=== PATIENT | male | born 1960 | race Caucasian/White ===

== ENCOUNTER 2016-11-27 18:08 | Emergency (ER) | payer OTHER ==
[2016-11-27 18:47] VITALS: BP 124/85; PULSE 90; TEMP 97.2; BMI 23.3
--- NOTE | 2016-11-27 19:16 | PDOC ---
History of Present Illness - General History Source: Patient Exam Limitations: No Limitations - History of Present Illness Initial Comments: 11/27/16 19:32 The patient is a 55 year old male with past medical history of MR, conduct disorder, anxiety who arrives to the ED from a senior care secondary to one episode of vomiting about an hour ago prior to arrival. As per care takers the patient ate his dinner too fast and proceeded to vomit. They noted the vomit to be nonbloody and nonbilious. His dinner consisted of rice and vegetables. After the episode, the patient returned to his baseline. They deny any recent illness , fever, chills, diarrhea, CP, SOB, or urinary symptoms. <Norma Shearer - Last Filed: 11/27/16 19:32> <Rajani Guthrie - Last Filed: 11/28/16 03:17> - General Chief Complaint: Nausea/Vomiting Stated Complaint: THREW UP Time Seen by Provider: 11/27/16 19:13 Past History <Norma Shearer - Last Filed: 11/27/16 19:32> - Past Medical History Psychiatric Problems: Yes - Immunization History Immunization Up to Date: Yes - Psycho/Social/Smoking Cessation Hx Anxiety: Yes Suicidal Ideation: No Smoking Status: No Smoking History: Never smoked Have you smoked in the past 12 months: No Number of Cigarettes Smoked Daily: 0 Hx Alcohol Use: No Drug/Substance Use Hx: No Substance Use Type: None Hx Substance Use Treatment: No <Rajani Guthrie - Last Filed: 11/28/16 03:17> - Past Medical History Allergies/Adverse Reactions: Allergies Allergy/AdvReac Type Severity Reaction Status Date / Time lindane [From [place]] Allergy Verified 07/18/16 15:27 Phenothiazines Allergy Verified 07/18/16 15:27 thioridazine HCl Allergy Verified 07/18/16 15:27 [From Mellaril] Home Medications: Ambulatory Orders Ascorbate Calcium [Vitamin C] 500 mg PO DAILY 07/18/16 Benztropine Mesylate 0.5 mg PO BID 07/18/16 Cetirizine HCl [Wal-Zyr] 10 mg PO HS 07/18/16 Colloidal Oatmeal [Aveeno Bath] 1 each TP MOWEFR 07/18/16 Docusate Sodium [Colace -] 100 mg PO BID 07/18/16 Fluoxetine HCl 80 mg PO DAILY 07/18/16 Hydroxyzine HCl [Atarax -] 50 mg PO TID 07/18/16 Lorazepam [Ativan] 2 mg PO TID 07/18/16 [place]-3 Fatty Acids [[place]-3] 1,000 mg PO BID 07/18/16 Risperidone [Risperdal] 2 mg PO TID 07/18/16 Sennosides [Senna] 2 tab PO HS 07/18/16 Cholecalciferol (Vitamin D3) [Vitamin D3 -] 1,000 unit PO DAILY 11/27/16 Clobetasol Prop 0.05% Top Cr [Temovate (Nf)] 30 gm NR MOWEFR 11/27/16 Review of Systems - Review of Systems Able to Perform ROS?: Yes Comments:: 11/27/16 19:32 CONSTITUTIONAL: Absent: fever, chills, diaphoresis, generalized weakness, malaise, loss of appetite HEENT: Absent: rhinorrhea, nasal congestion, throat pain, throat swelling, difficulty swallowing, mouth swelling, ear pain, eye pain, visual Changes CARDIOVASCULAR: Absent: chest pain, syncope, palpitations, irregular heart rate, lightheadedness , peripheral edema RESPIRATORY: Absent: cough, shortness of breath, dyspnea with exertion, orthopnea, wheezing, stridor, hemoptysis GASTROINTESTINAL: Present: one episode of vomiting Absent: abdominal pain, abdominal distension, diarrhea, constipation, melena, hematochezia GENITOURINARY: Absent: dysuria, frequency, urgency, hesitancy, hematuria, flank pain, genital pain MUSCULOSKELETAL: Absent: myalgia, arthralgia, joint swelling SKIN: Absent: rash, itching, pallor HEMATOLOGIC/IMMUNOLOGIC: Absent: easy bleeding, easy bruising, lymphadenopathy, frequent infections ENDOCRINE: Absent: unexplained weight gain, unexplained weight loss, heat intolerance, cold intolerance NEUROLOGIC: Absent: headache, focal weakness or paresthesias, dizziness, unsteady gait, seizure, mental status changes, bladder or bowel incontinence PSYCHIATRIC: Absent: anxiety, depression, suicidal or homicidal ideation, hallucinations. All Other Systems: Reviewed and Negative <Norma Shearer - Last Filed: 11/27/16 19:32> *Physical Exam - Vital Signs Last Vital Signs Temp Pulse Resp BP Pulse Ox 97.2 F L 90 18 124/85 100 11/27/16 18:14 11/27/16 18:14 11/27/16 18:14 11/27/16 18:14 11/27/16 18:14 - Physical Exam Comments: 11/27/16 19:33 Exam limited to patient's mental condition GENERAL: The patient is awake, alert, nonverbal, cooperative in no acute distress. HEAD: Normal with no signs of trauma. EYES: Pupils equal, round and reactive to light, extraocular movements intact, sclera anicteric, conjunctiva clear with no pallor. ENT: Ears normal, nares patent, oropharynx clear without exudates. Moist mucous membranes. NECK: Normal range of motion, supple without lymphadenopathy, JVD, or masses. LUNGS: Breath sounds equal, clear to auscultation bilaterally. No wheeze/ crackles. HEART: Regular rate and rhythm, normal S1 and S2 without murmur or rub. ABDOMEN: Soft/nontender/nondistended. BS wnl. No guarding or rebound. No palpable masses. No hepatosplenomegaly. EXTREMITIES: Normal range of motion, no edema. No clubbing or cyanosis. No cords, erythema, or tenderness. NEUROLOGICAL: Cranial nerves II through XII grossly intact. PSYCH: Normal mood, normal affect. SKIN: Warm, Dry, normal turgor, no rashes or lesions noted. <Norma Shearer - Last Filed: 11/27/16 19:32> - Vital Signs Last Vital Signs Temp Pulse Resp BP Pulse Ox 97.2 F L 90 18 124/85 100 11/27/16 18:14 11/27/16 18:14 11/27/16 18:14 11/27/16 18:14 11/27/16 18:14 <Rajani Guthrie - Last Filed: 11/28/16 03:17> Medical Decision Making - Medical Decision Making Documentation has been prepared under my direction and personally reviewed by me in its entirety. I attest that this documented accurately reflects all work, treatment, procedures and medical decision making performed by me. As noted above, this 55-year-old patient with a history of MR, resident in local home for disabled adults presents with 1 episode of vomiting that occurred while he was eating dinner. According to the aides who accompany him here, he he has had no further signs of distress or vomiting since that one episode. Exam is noted Patient's exam is normal and he appears to be comfortable without evidence of distress. Patient given a small cup of juice to evaluate whether he will have any recurrence of vomiting Patient tolerates juice well without evidence of discomfort or vomiting. Patient will be discharged with instructions to return to the emergency room if there is any repeat episodes of vomiting or evidence of abdominal pain. Follow- up with general medical doctor will be as scheduled <Rajani Guthrie - Last Filed: 11/28/16 03:17> *DC/Admit/Observation/Transfer - Attestations Scribe Attestion: 11/27/16 19:35 Documentation prepared by Norma Shearer, acting as medical assistant dermatology for Rajani Guthrie MD. <Norma Shearer - Last Filed: 11/27/16 19:32> <Rajani Guthrie - Last Filed: 11/28/16 03:17> Diagnosis at time of Disposition: History of vomiting - Discharge Dispostion Disposition: HOME Condition at time of disposition: Stable - Referrals Referrals: Christos Danielson [Primary Care Provider] - - Patient Instructions Printed Discharge Instructions: DI for Vomiting -- Adult Additional Instructions: continue medications as prescribed return to ER if vomiting recurs followup with general medical doctor as scheduled
== END 2016-11-27 19:48 | disposition home or self-care (01) ==
LOC: FER 18:08
DX: R11.10 Vomiting, unspecified (principal); F79 Unspecified intellectual disabilities; F41.9 Anxiety disorder, unspecified
CPT/HCPCS: 99282-25

== ENCOUNTER 2017-03-14 08:34 | Emergency (ER) | payer OTHER ==
--- NOTE | 2017-03-14 08:39 | PDOC ---
History of Present Illness - General Chief Complaint: Rash Stated Complaint: RASH ACROSS LOWER BACK Time Seen by Provider: 03/14/17 08:39 History Source: Care Provider Exam Limitations: Other (cognitive impairment) - History of Present Illness Initial Comments: 03/14/17 08:57 Pt presents to the ED after brought in by health care / medical job titles in correction for rash on his lower back and his left elbow that the health care / medical job titles noticed today. No fever or sick contacts. History of eczema. Patient also has chronic dry skin and is often " scratching at himself", so his health care / medical job titles is uncertain whether the rash is pruritic. No nausea or vomiting. No new soaps or detergents. Past History - Past Medical History Allergies/Adverse Reactions: Allergies Allergy/AdvReac Type Severity Reaction Status Date / Time lindane [From Ralf] Allergy Verified 03/14/17 08:36 Phenothiazines Allergy Verified 03/14/17 08:36 thioridazine HCl Allergy Verified 03/14/17 08:36 [From Kaden] Home Medications: Ambulatory Orders Ascorbate Calcium [Vitamin C] 500 mg PO DAILY 07/18/16 Benztropine Mesylate 0.5 mg PO BID 07/18/16 Cetirizine HCl [Wal-Zyr] 10 mg PO HS 07/18/16 Colloidal Oatmeal [Aveeno Bath] 1 each TP MOWEFR 07/18/16 Docusate Sodium [Colace -] 100 mg PO BID 07/18/16 Fluoxetine HCl 80 mg PO DAILY 07/18/16 Hydroxyzine HCl [Atarax -] 50 mg PO TID 07/18/16 Lorazepam [Ativan] 2 mg PO TID 07/18/16 [place]-3 Fatty Acids [[place]-3] 1,000 mg PO BID 07/18/16 Risperidone [Risperdal] 2 mg PO TID 07/18/16 Sennosides [Senna] 2 tab PO HS 07/18/16 Cholecalciferol (Vitamin D3) [Vitamin D3 -] 1,000 unit PO DAILY 11/27/16 Clobetasol Prop 0.05% Top Cr [Temovate (Nf)] 30 gm NR MOWEFR 11/27/16 Hydrocortisone 2.5% Lotion [Hytone 2.5% Lotion -] 1 applic TP BID #1 bottle Psychiatric Problems: Yes - Immunization History Immunization Up to Date: Yes - Psycho/Social/Smoking Cessation Hx Anxiety: Yes Suicidal Ideation: No Smoking Status: No Smoking History: Never smoked Have you smoked in the past 12 months: No Number of Cigarettes Smoked Daily: 0 Hx Alcohol Use: No Drug/Substance Use Hx: No Substance Use Type: None Hx Substance Use Treatment: No Review of Systems - Review of Systems Able to Perform ROS?: No (cognitive impairment) Constitutional: No: Symptoms Reported, See HPI, Chills, Diaphoresis, Fever, Loss of Appetite, Malaise, Night Sweats, Weakness, Weight Stable, Unintentional Wgt. Loss, Unexplained wgt Loss, Other ABD/GI: No: Symptoms Reported, See HPI, Abdominal Distended, Abd. Pain w/ defecation, Blood Streaked Bowels, Constipated, Diarrhea, Difficulty Swallowing , Nausea, Poor Appetite, Poor Fluid Intake, Rectal Bleeding, Vomiting, Indigestion, Abdominal cramping, Tarry Stools, Other Integumentary: Yes: Dryness, Erythema, Rash. No: Symptoms Reported, See HPI, Bruising, Change in Color, Change in Hair/Nails, Flushing, Lesions, Lumps, Pallor, Pruritus, Sweating, Other *Physical Exam - Physical Exam General Appearance: Yes: Nourished, Appropriately Dressed HEENT: positive: Normal ENT Inspection Neck: positive: Supple Respiratory/Chest: positive: Lungs Clear, Normal Breath Sounds Cardiovascular: positive: Regular Rhythm, Regular Rate, S1, S2 Gastrointestinal/Abdominal: positive: Flat, Soft. negative: Normal Bowel Sounds , Tender, Organomegaly, Pulsatile Mass, Increased Bowel Sounds, Decreased BS, Protuberent, Distended, Guarding, Rebound, Tenderness, Hernia, Mass, Hepatomegaly, Spleenomegaly, Other Integumentary: positive: Rash (band like erythematous, blanching rash on lower back. Not tender to the touch. Similar rash on left elbow. No rash on palms, soles, axilla or groin. No rash in between fingers. ) Medical Decision Making - Medical Decision Making 03/14/17 09:08 Pt presents to the ED with a one day history of rash to the lower back and left elbow. Longstanding history of eczema, on multiple creams for rashes in the past. no sick contacts. Rash does not appear to be consistent with zoster, although it is in a band like distribution, because there are no vesicles, it is non tender, and because there is a similar rash on his elbow in a different dermatome. Will recommend hydrocortisone cream and dermatology follow up and discharge home. *DC/Admit/Observation/Transfer Diagnosis at time of Disposition: Contact dermatitis Qualifiers: Contact dermatitis type: irritant Contact dermatitis trigger: unspecified trigger Qualified Code(s): L24.9 - Irritant contact dermatitis, unspecified cause - Discharge Dispostion Condition at time of disposition: Stable Admit: No - Prescriptions Prescriptions: Hydrocortisone 2.5% Lotion [Hytone 2.5% Lotion -] 1 applic TP BID #1 bottle - Patient Instructions Printed Discharge Instructions: DI for Contact Dermatitis Additional Instructions: use the hydrocortisone cream and a gentle soap and moisterizer, such as aveeno or lubriderm. Return to the ED for spreading rash, rash with fever, unresolved rash within 3 days.
[2017-03-14 08:50] VITALS: BP 113/70; PULSE 78; TEMP 98.1; BMI 22.8
== END 2017-03-14 09:23 | disposition home or self-care (01) ==
LOC: FER 08:34
DX: L24.9 Irritant contact dermatitis, unspecified cause (principal); F99 Mental disorder, not otherwise specified
CPT/HCPCS: 99281-25

== ENCOUNTER 2017-04-27 08:40 | Emergency (ER) | payer OTHER ==
[2017-04-27 08:48] VITALS: BP 119/68; PULSE 87; TEMP 98.4; BMI 282.4
--- NOTE | 2017-04-27 08:56 | PDOC ---
History of Present Illness - General Chief Complaint: Laceration Stated Complaint: laceration on back of right forearm Time Seen by Provider: 04/27/17 08:51 - History of Present Illness Initial Comments: 04/27/17 08:51 Chief complaint: Injury right forearm History of present illness: Patient with severe mental retardation, resident of detention, caregivers noted bleeding from the right forearm this morning, appeared to be no recent injury, though they're not sure the mechanism. The patient is nonverbal and unable to provide any information Review of systems: Patient appears in no distress, is cooperative, but cannot verbalize Past medical history: Obtained from the old record, mental retardation, anxiety , eczema, cataracts, chronic gait instability, constipation, severe IDD. Social/family history reviewed and noncontributory Medications as noted. Tetanus immunization 2015. Physical exam: No acute distress, cooperative. Afebrile, vital signs normal Right forearm: 2 cm superficial skin tear, mid forearm, ulnar aspect. No significant laceration or deep puncture is noted. No significant bleeding. Impression: Superficial skin tear Plan: The wound was scrubbed with normal saline, dressed with bacitracin. Wound care instructions to caregivers. Follow-up if sign of infection. Tetanus is up- to-date. Patient fully ambulatory and in no distress upon discharge to follow- up as directed Past History - Past Medical History Allergies/Adverse Reactions: Allergies Allergy/AdvReac Type Severity Reaction Status Date / Time castillo [From Ralf] Allergy Verified 04/27/17 08:41 Phenothiazines Allergy Verified 04/27/17 08:41 thioridazine HCl Allergy Verified 04/27/17 08:41 [From Kaden] Home Medications: Ambulatory Orders Ascorbate Calcium [Vitamin C] 1,000 mg PO DAILY 07/18/16 Benztropine Mesylate 0.5 mg PO BID 07/18/16 Cetirizine HCl [Wal-Zyr] 10 mg PO HS 07/18/16 Colloidal Oatmeal [Aveeno Bath] 1 each TP MOWEFR 07/18/16 Docusate Sodium [Colace -] 100 mg PO BID 07/18/16 Fluoxetine HCl 80 mg PO DAILY 07/18/16 Hydroxyzine HCl [Atarax -] 50 mg PO TID 07/18/16 Lorazepam [Ativan] 2 mg PO TID 07/18/16 [place]-3 Fatty Acids [[place]-3] 1,000 mg PO BID 07/18/16 Risperidone [Risperdal] 2 mg PO TID 07/18/16 Sennosides [Senna] 2 tab PO HS 07/18/16 Cholecalciferol (Vitamin D3) [Vitamin D3 -] 1,000 unit PO DAILY 11/27/16 Gly/Min Oil/Petrolat,Wht/Water [Lubriderm Sensitive Skin Lot] 1 applic TP BID Hydrocortisone 2.5% Lotion [Hytone 2.5% Lotion -] 1 applic TP BID #1 bottle Triamcinolone 0.1% Cream 1 applic TP BID 03/14/17 Psychiatric Problems: Yes - Immunization History Immunization Up to Date: Yes (03/06/2014 at [facility]) - Suicide/Smoking/Psychosocial Hx Smoking Status: No Smoking History: Never smoked Have you smoked in the past 12 months: No Number of Cigarettes Smoked Daily: 0 Hx Alcohol Use: No Drug/Substance Use Hx: No Substance Use Type: None Hx Substance Use Treatment: No *Physical Exam - Vital Signs Last Vital Signs Temp Pulse Resp BP Pulse Ox 98.4 F 87 16 119/68 98 04/27/17 08:41 04/27/17 08:41 04/27/17 08:41 04/27/17 08:41 04/27/17 08:41 *DC/Admit/Observation/Transfer Diagnosis at time of Disposition: Skin abrasion - Discharge Dispostion Disposition: HOME Condition at time of disposition: Improved Admit: No - Patient Instructions Printed Discharge Instructions: DI for Abrasion Additional Instructions: Wound care daily, cleaned with sterile saline, dressed with bacitracin, keep covered until healed. Recheck if sign of infection.
== END 2017-04-27 09:23 ==
LOC: FER 08:40
DX: S50.811A Abrasion of right forearm, initial encounter (principal); F79 Unspecified intellectual disabilities; X58.XXXA Exposure to other specified factors, initial encounter; Y93.9 Activity, unspecified; Y92.238 Other place in hospital as the place of occurrence of the external cause
CPT/HCPCS: 99281-25

== ENCOUNTER 2017-10-30 21:48 | Inpatient (IN) | payer OTHER ==
--- NOTE | 2017-10-30 22:21 | PDOC ---
History of Present Illness - General Chief Complaint: Cold Symptoms Stated Complaint: FEVER/COUGH History Source: Care Provider Exam Limitations: Other (mental disability) - History of Present Illness Initial Comments: 10/30/17 23:16 This is a 56-year-old male who lives in a fdc secondary to his mental disability. Patient was recently diagnosed with pneumonia and was started Tamiflu 3 days ago. Patient now has a fever so was brought in for evaluation. Patient is noted to sound congested here in the emergency room otherwise though he is without complaints. He denies any shortness of breath chest pain or any other complaints. However patient is mentally handicapped and may or may not the able to understand the questions. PAST MEDICAL HISTORY: no significant history PAST SURGICAL HISTORY: no significant history FAMILY HISTORY: no pertinant history SOCIAL HISTORY: Pt lives with family and is employed. MEDICATIONS: reviewed ALLERGIES: As per nursing notes Review of Systems General: + fevers or chills, no weakness, no weight loss HEENT: No change in vision. No sore throat,. No ear pain CardioVascular: No chest pain or shortness of breath Respiratory: +cough, or wheezing. Gastrointestinal: no nausea, vomitting, diarrhea or constipation, No rectal bleeding Genitourinary: No dysuria, hematuria, or frequency Musculoskeletal: No joint or muscle pain or swelling Neurologic: No headache, vertigo, dizziness or loss of consciousness Psychiatric: nor depression Skin: No rashes or easy bruising Endocrine: no increased thirst or abnormal weight change Allergic: no skin or latex allergy All other systems reviewed and normal Exam: General: Well-nourished well-developed individual, no acute distress HEENT: Throat: Normal, tonsils normal, no erythema or exudate Neck: Supple, no meningeal signs, no lymphadenopathy Eyes::Pupils equal reactive and round, extraocular motion intact Chest: Nontender to palpation Cardiac: S1-S2 normal, regular rate and rhythm, no murmurs rubs or gallops Respiratory: Some decreased breath sounds bilateral with rales bilateral Abdomen: Soft, nondistended, normal bowel sounds, nontender to palpation diffusely Extremities: Warm, dry, no cyanosis, clubbing, or edema Skin: No rashes Neuro: Alert, nonfocal exam with normal strength, normal sensation, normal reflexes, normal gait, Psych: Normal mood and affect Medical decision making this is a 56-year-old male with history of recent diagnosis of influenza was brought in for evaluation of a fever. On exam patient does sound somewhat congested with some crackles bilateral bases. Will obtain workup including EKG, cardiac enzymes, CBC, comp, blood culture, chest x-ray Will medicate fever with Tylenol We'll reassess and evaluate results of workup Chest x-ray shows moderate amount of what appears to be pulmonary vascular congestion 10/31/17 00:23 Assessment and plan: This is a 56-year-old male who is brought in for fever and cough. However on evaluation patient was noted to have some pulmonary vascular congestion. Patient does not have a cardiac history. Patient's BMP was 1094. His chest x-ray shows moderate pulmonary vascular congestion. Patient is also noted to be hyponatremic. Patient has a mildly elevated white count most likely secondary to his influenza. Patient will be admitted to a observation telemetry bed for further evaluation and workup. Past History - Past Medical History Allergies/Adverse Reactions: Allergies Allergy/AdvReac Type Severity Reaction Status Date / Time lindane [From Ralf] Allergy Verified 04/27/17 08:41 Phenothiazines Allergy Verified 04/27/17 08:41 thioridazine HCl Allergy Verified 04/27/17 08:41 [From Kaden] Home Medications: Ambulatory Orders Ascorbate Calcium [Vitamin C] 1,000 mg PO DAILY 07/18/16 Benztropine Mesylate 0.5 mg PO BID 07/18/16 Cetirizine HCl [Wal-Zyr] 10 mg PO HS 07/18/16 Colloidal Oatmeal [Aveeno Bath -] 1 each TP MOWEFR 07/18/16 Docusate Sodium [Colace -] 100 mg PO BID 07/18/16 Fluoxetine HCl 80 mg PO DAILY 07/18/16 Lorazepam [Ativan] 2 mg PO TID 07/18/16 [place]-3 Fatty Acids [[place]-3] 1,000 mg PO BID 07/18/16 Risperidone [Risperdal -] 2 mg PO TID 07/18/16 Sennosides [Senna -] 2 tab PO HS 07/18/16 hydrOXYzine HCL [Atarax -] 50 mg PO TID 07/18/16 Cholecalciferol (Vitamin D3) [Vitamin D3 -] 1,000 unit PO DAILY 11/27/16 Glycerin/Min Oil/Wh.petrolatum [Lubriderm Sensitive Skin Lot] 1 applic TP BID Hydrocortisone 2.5% Lotion [Hytone 2.5% Lotion -] 1 applic TP BID #1 bottle Triamcinolone 0.1% Cream 1 applic TP BID 03/14/17 Bacitracin/Polymyxin B Sulfate [Bacitracin-Polymyxin Ointment] 1 applic TP DAILY #1 oint...g. 04/27/17 Acetaminophen 325 mg PO PRN 10/30/17 Oseltamivir Phosphate 75 mg PO DAILY 10/30/17 COPD: No Psychiatric Problems: Yes - Immunization History Immunization Up to Date: Yes - Suicide/Smoking/Psychosocial Hx Smoking Status: No Smoking History: Never smoked Have you smoked in the past 12 months: No Number of Cigarettes Smoked Daily: 0 Hx Alcohol Use: No Drug/Substance Use Hx: No Substance Use Type: None Hx Substance Use Treatment: No *Physical Exam - Vital Signs Last Vital Signs Temp Pulse Resp BP Pulse Ox 102 F H 107 H 18 112/66 100 10/30/17 22:06 10/30/17 22:06 10/30/17 22:06 10/30/17 22:06 10/30/17 22:06 ED Treatment Course - LABORATORY CBC & Chemistry Diagram: 10/30/17 22:30 10/30/17 22:30 *DC/Admit/Observation/Transfer Diagnosis at time of Disposition: Hyponatremia, CHF (congestive heart failure) - Discharge Dispostion Condition at time of disposition: Stable Admit: Yes - Referrals - Patient Instructions - Post Discharge Activity
[2017-10-30 23:00] LABS: ALBUMIN 2.6 g/dl (3.5-5.0); ALK PHOS 77 U/L (32-92); ANION GAP 6 (8-16); BILIRUBIN,TOTAL 0.9 mg/dl (0.2-1.0); BLOOD UREA NITROGEN 26 mg/dl (7-18); CHLORIDE 94 mmol/L (98-107); CO2 26 mmol/L (22-28); CREATININE 1.3 mg/dl (0.6-1.3); GLUCOSE,RANDOM 167 mg/dl (74-106); POTASSIUM 4.5 mmol/L (3.5-5.1); SGOT/AST 41 U/L (10-42); SGPT/ALT 49 U/L (10-40); SODIUM 126 mmol/L (136-145); TOT PROT 6.1 g/dl (6.4-8.3)
[2017-10-30 23:01] LABS: HEMATOCRIT 34.2 % (35.4-49); MCH 29.4 pg (25.7-33.7); MCHC 35.2 g/dl (32.0-35.9); MEAN CELL VOLUME 83.6 fl (80-96); MEAN PLT VOLUME 8.3 fl (7.5-11.1); PLATELET COUNT 147 K/MM3 (134-434); RBC 4.09 M/mm3 (4.00-5.60); RDW 13.4 % (11.9-15.9); WHITE BLOOD COUNT 15.9 K/mm3 (4.0-10.8)
[2017-10-31] MEDS ORDERED: AZITHROMYCIN 250 MG TABLET PO ONE (00:34)
[2017-10-31] MEDS ORDERED: AZITHROMYCIN 250 MG TABLET ONE (00:42)
[2017-10-31] MEDS ORDERED: FUROSEMIDE 40 MG/4 ML INJECTABLE VIAL IVPUSH ONE (00:47)
[2017-10-31] MEDS ORDERED: cefTRIAXone SODIUM 1 GM VIAL ONE (00:48)
[2017-10-31] MEDS ORDERED: FUROSEMIDE 40 MG/4 ML INJECTABLE VIAL ONE (00:51)
[2017-10-31 01:28] VITALS: BMI 29.9
[2017-10-31] MEDS ORDERED: ASPIRIN 81 MG CHEWABLE TABLETS PO ONE (02:10)
[2017-10-31] MEDS ORDERED: LISINOPRIL 5 MG TABLET (FP) PO ONE (02:15)
[2017-10-31 02:55] LABS: URINE APPEARANCE CLEAR; URINE BILIRUBIN NEGATIVE (<2.0 mg/dL); URINE BLOOD NEGATIVE (NEGATIVE); URINE COLOR LTYELLOW; URINE GLUCOSE (UA) NEGATIVE (NEGATIVE); URINE KETONE NEGATIVE (NEGATIVE); URINE LEUK ESTERASE NEGATIVE (NEGATIVE); URINE NITRITE NEGATIVE (NEGATIVE); URINE PROTEIN NEGATIVE (NEGATIVE); URINE UROBILINOGEN NEGATIVE mg/dL (0.2-1.0)
--- NOTE | 2017-10-31 09:00 | EKG ---
Test Reason : Blood Pressure : / mmHG Vent. Rate : 081 BPM Atrial Rate : 081 BPM P-R Int : 188 ms QRS Dur : 100 ms QT Int : 390 ms P-R-T Axes : 036 043 040 degrees QTc Int : 453 ms NORMAL SINUS RHYTHM NORMAL ECG WHEN COMPARED WITH ECG OF 18-JUL-2016 18:48, NONSPECIFIC T WAVE ABNORMALITY NO LONGER EVIDENT IN INFERIOR LEADS Confirmed by KAYE ANDERSON MD ([id number]) on 10/31/2017 9:00:30 AM Referred By: MD REYES Confirmed By:KAYE ANDERSON MD
[2017-10-31] MEDS: AZITHROMYCIN 250 MG TABLET PO SCH (09:18)
[2017-10-31] MEDS: FUROSEMIDE 40 MG/4 ML INJECTABLE VIAL IVPUSH SCH (09:18)
[2017-10-31] MEDS: HEPARIN NA (PORCINE) 5,000 UNITS/ML 1ML VIAL SQ SCH ×2 (09:18→21:03)
[2017-10-31] MEDS: CEFTRIAXONE 1 G/50 ML PREMIX 50 ML IVPB SCH (09:37)
[2017-10-31 10:13] LABS: ALBUMIN 2.3 g/dl (3.5-5.0); ALK PHOS 73 U/L (32-92); ANION GAP 7 (8-16); BILIRUBIN,TOTAL 0.7 mg/dl (0.2-1.0); BLOOD UREA NITROGEN 22 mg/dl (7-18); CALCIUM 7.6 mg/dl (8.4-10.2); CHLORIDE 96 mmol/L (98-107); CO2 27 mmol/L (22-28); GLUCOSE,RANDOM 93 mg/dl (74-106); POTASSIUM 3.6 mmol/L (3.5-5.1); SGOT/AST 32 U/L (10-42); SGPT/ALT 46 U/L (10-40); SODIUM 130 mmol/L (136-145); TOT PROT 5.5 g/dl (6.4-8.3)
[2017-10-31 10:26] LABS: EOS % 0.1 % (0-4.5); HEMATOCRIT 34.8 % (35.4-49); LYMPH % 4.7 % (8-40); MCH 29.2 pg (25.7-33.7); MCHC 34.5 g/dl (32.0-35.9); MEAN CELL VOLUME 84.5 fl (80-96); MEAN PLT VOLUME 8.7 fl (7.5-11.1); MONO % 4.2 % (3.8-10.2); PLATELET COUNT 151 K/MM3 (134-434); RBC 4.12 M/mm3 (4.00-5.60); RDW 13.6 % (11.9-15.9); WHITE BLOOD COUNT 18.1 K/mm3 (4.0-10.8)
[2017-10-31] MEDS: OSELTAMIVIR PHOSPHATE 75 MG CAPSULE PO SCH ×2 (11:29→21:03)
--- NOTE | 2017-10-31 11:41 | HP ---
CHIEF COMPLAINT: Fever, SOB, cough for 3 days PCP: HISTORY OF PRESENT ILLNESS: This 56 yr old male who has a significant hx of MR, lives in a retirement with 4 other residents and an aid. One of the residents developed influenza last week and the other three residents were put on the prophylactic tamiflu for one week. This 75 mg daily dose started on . On Wednesday, the pt developed a cough and last evening developed a fever. The Aid brought the pt to ER for evaluation. ER course was notable for: (1) CXR with finding of severe pulmonary congestion, no infiltrates. elevated BNP (2)hyponatremia at 126 (3) Recent Travel: none PAST MEDICAL HISTORY: severe MR, does ambulate and can converse, oral feeding on own, PAST SURGICAL HISTORY: Social History: Smoking:none Alcohol:none Drugs: none Family History: Allergies lindane [From [facility]] Allergy (Verified 04/27/17 08:41) Phenothiazines Allergy (Verified 04/27/17 08:41) thioridazine HCl [From [place]] Allergy (Verified 04/27/17 08:41) HOME MEDICATIONS: Home Medications Medication Instructions Recorded Ascorbate Calcium [Vitamin C] 1,000 mg PO DAILY 07/18/16 Benztropine Mesylate 0.5 mg PO BID 07/18/16 Cetirizine HCl [Wal-Zyr] 10 mg PO HS 07/18/16 Colloidal Oatmeal [Aveeno Bath -] 1 each TP MOWEFR 07/18/16 Docusate Sodium [Colace -] 100 mg PO BID 07/18/16 Fluoxetine HCl 80 mg PO DAILY 07/18/16 Lorazepam [Ativan] 2 mg PO TID 07/18/16 [place]-3 Fatty Acids [[place]-3] 1,000 mg PO BID 07/18/16 Risperidone [Risperdal -] 2 mg PO TID 07/18/16 Sennosides [Senna -] 2 tab PO HS 07/18/16 hydrOXYzine HCL [Atarax -] 50 mg PO TID 07/18/16 Cholecalciferol (Vitamin D3) 1,000 unit PO DAILY 11/27/16 [Vitamin D3 -] Glycerin/Min Oil/Wh.petrolatum 1 applic TP BID 03/14/17 [Lubriderm Sensitive Skin Lot] Hydrocortisone 2.5% Lotion [Hytone 1 applic TP BID #1 bottle 03/14/17 2.5% Lotion -] Triamcinolone 0.1% Cream 1 applic TP BID 03/14/17 Bacitracin/Polymyxin B Sulfate 1 applic TP DAILY #1 oint...g. 04/27/17 [Bacitracin-Polymyxin Ointment] Acetaminophen 325 mg PO PRN 10/30/17 Oseltamivir Phosphate 75 mg PO DAILY 10/30/17 REVIEW OF SYSTEMS CONSTITUTIONAL: Absent: +fever, chills, diaphoresis, generalized weakness, malaise, loss of appetite, weight change HEENT: Absent: rhinorrhea, nasal congestion, throat pain, throat swelling, difficulty swallowing, mouth swelling, ear pain, eye pain, visual changes CARDIOVASCULAR: Absent: chest pain, syncope, palpitations, irregular heart rate, lightheadedness , peripheral edema RESPIRATORY: Absent: +cough, +shortness of breath, dyspnea with exertion, orthopnea, wheezing , stridor, hemoptysis GASTROINTESTINAL: Absent: abdominal pain, abdominal distension, nausea, vomiting, diarrhea, constipation, melena, hematochezia GENITOURINARY: Absent: dysuria, frequency, urgency, hesitancy, hematuria, flank pain, genital pain MUSCULOSKELETAL: Absent: myalgia, arthralgia, joint swelling, back pain, neck pain, - LE edema SKIN: Absent: rash, itching, pallor HEMATOLOGIC/IMMUNOLOGIC: Absent: easy bleeding, easy bruising, lymphadenopathy, frequent infections ENDOCRINE: Absent: unexplained weight gain, unexplained weight loss, heat intolerance, cold intolerance NEUROLOGIC: Absent: headache, focal weakness or paresthesias, dizziness, unsteady gait, seizure, mental status changes, bladder or bowel incontinence PSYCHIATRIC: Absent: anxiety, depression, suicidal or homicidal ideation, hallucinations. PHYSICAL EXAMINATION Vital Signs - 24 hr 10/30/17 10/31/17 10/31/17 22:06 00:57 06:50 Temperature 102 F H 98.5 F 98.5 F Pulse Rate 107 H 81 72 Pulse Rate [ 81 Apical] Respiratory 18 18 20 Rate Blood Pressure 112/66 116/54 114/67 Blood Pressure 104/67 [Arm] O2 Sat by Pulse 100 94 L Oximetry (%) GENERAL: Awake, alert, unable to assess orientation, no recognition of questions , normal for pt status, in no acute distress. HEAD: Normal with no signs of trauma. LUNGS: Breath sounds equal, rhonchi to auscultation bilaterally with some wheezes, and no crackles. No accessory muscle use. HEART: Regular rate and rhythm, normal S1 and S2 without murmur, rub or gallop. ABDOMEN: Soft, nontender, not distended, normoactive bowel sounds, no guarding, no rebound, no masses. No hepatomegaly or splenomegaly. MUSCULOSKELETAL: Normal range of motion at all joints UPPER EXTREMITIES: 2+ pulses, warm, well-perfused. No cyanosis. No clubbing. No peripheral edema. LOWER EXTREMITIES: 2+ pulses, warm, well-perfused. No calf tenderness. + peripheral edema. NEUROLOGICAL: Cranial nerves II-XII intact. Normal speech. Normal gait. PSYCHIATRIC: Cooperative. Good eye contact. Appropriate mood and affect. SKIN: Warm, dry, normal turgor, no rashes or lesions noted, normal capillary refill. Laboratory Results - last 24 hr 10/30/17 10/30/17 10/30/17 22:30 22:30 23:05 WBC 15.9 H D RBC 4.09 Hgb 12.0 Hct 34.2 L D MCV 83.6 MCH 29.4 MCHC 35.2 RDW 13.4 D Plt Count 147 D MPV 8.3 Neutrophils % No Result Required. Neutrophils % (Manual) 82.0 Band Neutrophils % 9.0 Lymphocytes % No Result Required. Lymphocytes % (Manual) 4.0 L Monocytes % Monocytes % (Manual) 5 Eosinophils % Basophils % Differential Comment Few large plts Sodium 126 L Potassium 4.5 Chloride 94 L Carbon Dioxide 26 Anion Gap 6 L BUN 26 H Creatinine 1.3 D Creat Clearance w eGFR 56.70 Random Glucose 167 H D Calcium 8.0 L Total Bilirubin 0.9 AST 41 D ALT 49 H D Alkaline Phosphatase 77 Creatine Kinase Creatine Kinase Index CK-MB (CK-2) Troponin I < 0.03 B-Natriuretic Peptide Total Protein 6.1 L Albumin 2.6 L Urine Color Urine Appearance Urine pH Ur Specific D[place]agh Urine Protein Urine Glucose (UA) Urine Ketones Urine Blood Urine Nitrite Urine Bilirubin Urine Urobilinogen Ur Leukocyte Esterase 10/30/17 10/30/17 10/31/17 23:05 23:05 02:30 WBC RBC Hgb Hct MCV MCH MCHC RDW Plt Count MPV Neutrophils % Neutrophils % (Manual) Band Neutrophils % Lymphocytes % Lymphocytes % (Manual) Monocytes % Monocytes % (Manual) Eosinophils % Basophils % Differential Comment Sodium Potassium Chloride Carbon Dioxide Anion Gap BUN Creatinine Creat Clearance w eGFR Random Glucose Calcium Total Bilirubin AST ALT Alkaline Phosphatase Creatine Kinase 209 Creatine Kinase Index 0.6 CK-MB (CK-2) 1.4 Troponin I B-Natriuretic Peptide 1094.44 H Total Protein Albumin Urine Color Ltyellow Urine Appearance Clear Urine pH 6.0 Ur Specific Darragh 1.009 Urine Protein Negative Urine Glucose (UA) Negative Urine Ketones Negative Urine Blood Negative Urine Nitrite Negative Urine Bilirubin Negative Urine Urobilinogen Negative Ur Leukocyte Esterase Negative 10/31/17 10/31/17 06:45 06:45 WBC 18.1 H RBC 4.12 Hgb 12.0 Hct 34.8 L MCV 84.5 MCH 29.2 MCHC 34.5 RDW 13.6 Plt Count 151 MPV 8.7 Neutrophils % 91.0 H D Neutrophils % (Manual) Band Neutrophils % Lymphocytes % 4.7 L D Lymphocytes % (Manual) Monocytes % 4.2 Monocytes % (Manual) Eosinophils % 0.1 D Basophils % 0.0 Differential Comment Sodium 130 L Potassium 3.6 Chloride 96 L Carbon Dioxide 27 Anion Gap 7 L BUN 22 H Creatinine 1.0 D Creat Clearance w eGFR > 60 Random Glucose 93 D Calcium 7.6 L Total Bilirubin 0.7 D AST 32 D ALT 46 H Alkaline Phosphatase 73 Creatine Kinase Creatine Kinase Index CK-MB (CK-2) Troponin I B-Natriuretic Peptide Total Protein 5.5 L Albumin 2.3 L Urine Color Urine Appearance Urine pH Ur Specific [place] Urine Protein Urine Glucose (UA) Urine Ketones Urine Blood Urine Nitrite Urine Bilirubin Urine Urobilinogen Ur Leukocyte Esterase ASSESSMENT/PLAN: This 56 yr old male who is mentally retarded living in a residental home with + recent exposure to influenza now with, fever, cough, congestion 1. Pneumonia/influenza/pulmonary congestion -treating with azithromycin and rocephin IV -tylenol PRN for fever -attempt to have pt use an incentive spirometer -oxygen sat spot check -pending Echo -convert to tamiflu full strength for 3 days -droplet isolation -albuterol nebs -daily lasix -elevated BNP repeat tomorrow. 2. psychiatric/stable -continue home meds for anxiety, acting out -personal home health aid with pt 3. FEN -heparin SQ prophlatic -PT eval -regular diet -strict I/O -monitor electrolytes 4. hyponatremia -improved today -strict I/O -caution on overload -monitor while on daily lasix Disposition: Inpt admissio for hyponatremia and suspicious for influenza pneumonia and pulmonary congestion - Visit type - Emergency Visit Emergency Visit: Yes ED Registration Date: 10/31/17 Care time: The patient presented to the Emergency Department on the above date and was hospitalized for further evaluation of their emergent condition. - New Patient This patient is new to me today: Yes Date on this admission: 10/31/17 - Critical Care Critical Care patient: No Hospitalist Screening - Colonoscopy Questionnaire Colonoscopy Questionnaire: Colonoscopy Questionnaire - Patient: 50 - 75 years old and never had a screening colonoscopy: Yes History of colon or rectal polyps, or CA: Unknown History of IBD, Crohn's disease or UC: Unknown History of abdominal radiation therapy as a child: Unknown - Relative: 1 with colon or rectal CA, or polyps at age 60 or younger: Unknown Colon or rectal CA diagnosed at age 45 or younger: Unknown Multiple relatives with colon or rectal CA: Unknown - Outcome: Screening Result: Positive Screen
[2017-10-31] MEDS ORDERED: ALBUTEROL SO4 0.083% IH SOL 2.5 MG/3 ML VIAL.NEB. NEB PRN (11:44)
[2017-10-31] MEDS ORDERED: LORazepam 0.5 MG TABLET ONE (21:02)
[2017-10-31] MEDS: hydrOXYzine HCL 25 MG TABLET (FP) PO SCH (21:03)
[2017-10-31] MEDS: ACETAMINOPHEN 325 MG TABLET (FP) PO PRN (21:03)
[2017-10-31] MEDS: LORATADINE 10 MG TABLET PO SCH (21:04)
[2017-10-31] MEDS: LORazepam 1 MG TABLET PO SCH (21:04)
[2017-10-31] MEDS: SENNOSIDES 8.6MG TABLET (FP) PO SCH (21:04)
[2017-10-31] MEDS: risperiDONE 2 MG TABLET PO SCH (22:25)
[2017-10-31] MEDS: TRIAMCINOLONE ACET 0.1% CREAM 15 GM TUBE TP SCH (22:25)
[2017-10-31] MEDS: HYDROCORTISONE 2.5% LOTION - 1 BOTTLE TP SCH (22:26)
[2017-10-31] MEDS: BENZTROPINE MESYLATE 0.5 MG TABLET (FP) PO SCH (22:26)
[2017-11-01] MEDS ORDERED: LORazepam 0.5 MG TABLET ONE (06:03)
[2017-11-01] MEDS: LORazepam 1 MG TABLET PO SCH (06:14)
[2017-11-01] MEDS: DOCUSATE SODIUM 100 MG CAPSULE (FP) PO SCH ×2 (06:14→17:19)
[2017-11-01] MEDS: risperiDONE 2 MG TABLET PO SCH (06:14)
[2017-11-01] MEDS: hydrOXYzine HCL 25 MG TABLET (FP) PO SCH ×3 (06:14→21:19)
[2017-11-01] MEDS: OMEGA-3 ACID ETHYL ESTERS (FATTY-ACIDS) 1 GM CAPSULE (FP) PO SCH ×2 (06:14→17:19)
[2017-11-01 07:54] LABS: BASO % 0.2 % (0-2.0); EOS % 0.6 % (0-4.5); HEMOGLOBIN 12.1 GM/dl (11.7-16.9); LYMPH % 5.9 % (8-40); MCH 29.1 pg (25.7-33.7); MCHC 34.7 g/dl (32.0-35.9); MEAN CELL VOLUME 83.9 fl (80-96); MEAN PLT VOLUME 8.1 fl (7.5-11.1); MONO % 6.9 % (3.8-10.2); NEUT % 86.4 % (42.8-82.8); PLATELET COUNT 162 K/MM3 (134-434); RBC 4.17 M/mm3 (4.00-5.60); RDW 13.4 % (11.9-15.9); WHITE BLOOD COUNT 10.8 K/mm3 (4.0-10.8)
[2017-11-01 08:08] LABS: ANION GAP 7 (8-16); BLOOD UREA NITROGEN 18 mg/dl (7-18); CHLORIDE 100 mmol/L (98-107); CHOLESTEROL 146 mg/dl; CO2 26 mmol/L (22-28); CREATININE 0.9 mg/dl (0.6-1.3); GLUCOSE,RANDOM 108 mg/dl (74-106); POTASSIUM 3.8 mmol/L (3.5-5.1); SODIUM 133 mmol/L (136-145)
[2017-11-01] MEDS ORDERED: PT OWN MED DRAWER 7, Y5N ONE ×3 (09:09→21:14)
[2017-11-01] MEDS: TRIAMCINOLONE ACET 0.1% CREAM 15 GM TUBE TP SCH ×2 (09:13→21:26)
[2017-11-01] MEDS: CEFTRIAXONE 1 G/50 ML PREMIX 50 ML IVPB SCH (09:14)
[2017-11-01] MEDS: BENZTROPINE MESYLATE 0.5 MG TABLET (FP) PO SCH ×2 (09:14→21:19)
[2017-11-01] MEDS: HEPARIN NA (PORCINE) 5,000 UNITS/ML 1ML VIAL SQ SCH ×2 (09:14→21:20)
[2017-11-01] MEDS: FUROSEMIDE 40 MG/4 ML INJECTABLE VIAL IVPUSH SCH (09:15)
[2017-11-01] MEDS: FLUoxetine HCL 20 MG CAPSULE (FP) PO SCH (09:15)
[2017-11-01] MEDS: HYDROCORTISONE 2.5% LOTION - 1 BOTTLE TP SCH ×2 (09:15→21:20)
[2017-11-01] MEDS: OSELTAMIVIR PHOSPHATE 75 MG CAPSULE PO SCH ×2 (09:15→21:19)
[2017-11-01] MEDS: CHOLECALCIFEROL (VITAMIN D3) 1,000 UNIT TABLET (FP) PO SCH (09:16)
[2017-11-01] MEDS: AZITHROMYCIN 250 MG TABLET PO SCH (09:16)
[2017-11-01] MEDS: ASCORBIC ACID 500 MG TABLET (FP) PO SCH (09:16)
--- NOTE | 2017-11-01 09:46 | PN ---
Physical Exam: SUBJECTIVE: Patient seen and examined, ambulatory with direct care staff from halfway, voices no complaints. OBJECTIVE: patient is a 56 y/o male, that was admitted from the emergency department for respiratory distress secondary to CHF and PNA. Vital Signs Period Temp Pulse Resp BP Sys/B[place]and Pulse Ox Last 24 Hr 98.2 F-100.3 F 88-97 16-19 110-120/60-70 94-94 GENERAL: The patient is awake, alert, and fully oriented, in no acute distress. HEAD: Normal with no signs of trauma. EYES: PERRL, extraocular movements intact, sclera anicteric, conjunctiva clear. No ptosis. ENT: Ears normal, nares patent, oropharynx clear without exudates, moist mucous membranes. NECK: Trachea midline, full range of motion, supple. LUNGS: Breath sounds equal, course rhonchi to apexes, diminished to bases, moist cough throughout, no wheezes, no crackles, no accessory muscle use. HEART: Regular rate and rhythm, S1, S2 without murmur, rub or gallop. ABDOMEN: Soft, nontender, nondistended, normoactive bowel sounds, no guarding, no rebound, no hepatosplenomegaly, no masses. EXTREMITIES: 2+ pulses, warm, well-perfused, no edema. NEUROLOGICAL: Cranial nerves II through XII grossly intact. Normal speech, gait not observed. PSYCH: Normal mood, normal affect. SKIN: Warm, dry, normal turgor, no rashes or lesions noted Laboratory Results - last 24 hr 10/31/17 10/31/17 11/01/17 06:45 06:45 07:00 WBC 18.1 H RBC 4.12 Hgb 12.0 Hct 34.8 L MCV 84.5 MCH 29.2 MCHC 34.5 RDW 13.6 Plt Count 151 MPV 8.7 Neutrophils % 91.0 H D Lymphocytes % 4.7 L D Monocytes % 4.2 Eosinophils % 0.1 D Basophils % 0.0 Sodium 130 L 133 L Potassium 3.6 3.8 Chloride 96 L 100 Carbon Dioxide 27 26 Anion Gap 7 L 7 L BUN 22 H 18 Creatinine 1.0 D 0.9 Creat Clearance w eGFR > 60 Random Glucose 93 D 108 H Calcium 7.6 L 8.0 L Total Bilirubin 0.7 D AST 32 D ALT 46 H Alkaline Phosphatase 73 Troponin I Total Protein 5.5 L Albumin 2.3 L Cholesterol 146 11/01/17 11/01/17 07:18 07:18 WBC 10.8 D RBC 4.17 Hgb 12.1 Hct 35.0 L MCV 83.9 MCH 29.1 MCHC 34.7 RDW 13.4 Plt Count 162 MPV 8.1 Neutrophils % 86.4 H Lymphocytes % 5.9 L D Monocytes % 6.9 Eosinophils % 0.6 D Basophils % 0.2 D Sodium Potassium Chloride Carbon Dioxide Anion Gap BUN Creatinine Creat Clearance w eGFR Random Glucose Calcium Total Bilirubin AST ALT Alkaline Phosphatase Troponin I 0.03 Total Protein Albumin Cholesterol Active Medications Generic Name Dose Route Start Last Admin Trade Name Freq PRN Reason Stop Dose Admin Acetaminophen 650 mg 10/31/17 09:51 10/31/17 21:03 Tylenol - PO 650 mg Q6H PRN Administration FEVER Albuterol Sulfate 1 amp 10/31/17 11:44 10/31/17 21:10 Ventolin 0.083% Nebulizer Soln - NEB 1 amp Q6H PRN Administration SHORT OF BREATH/WHEEZING Ascorbic Acid 1,000 mg 11/01/17 10:00 11/01/17 09:16 Vitamin C - PO 1,000 mg DAILY [place] Administration Azithromycin 500 mg 10/31/17 10:00 11/01/17 09:16 Zithromax - PO 500 mg DAILY [place] Administration Benztropine Mesylate 0.5 mg 10/31/17 22:00 11/01/17 09:14 Cogentin - PO 0.5 mg BID [place] Administration Cholecalciferol 1,000 unit 11/01/17 10:00 11/01/17 09:16 Vitamin D3 - PO 1,000 unit DAILY [place] Administration Docusate Sodium 100 mg 11/01/17 07:00 11/01/17 06:14 Colace - PO 100 mg 0700,1700 [place] Administration Fluoxetine HCl 80 mg 11/01/17 10:00 11/01/17 09:15 Prozac - PO 80 mg DAILY [place] Administration Furosemide 40 mg 10/31/17 10:00 11/01/17 09:15 Lasix Injection - IVPUSH 40 mg DAILY [place] Administration Heparin Sodium (Porcine) 5,000 unit 10/31/17 10:00 11/01/17 09:14 Heparin - SQ 5,000 unit BID [place] Administration Hydrocortisone 1 applic 10/31/17 22:00 11/01/17 09:15 Hytone 2.5% Lotion - TP 1 applic BID [place] Administration Hydroxyzine HCl 50 mg 10/31/17 22:00 11/01/17 06:14 Atarax - PO 50 mg TID [place] Administration CEFTRIAXONE 1 G/50 ML PREMIX 50 mls @ 100 mls/hr 10/31/17 10:00 11/01/17 09: 14 Ceftriaxone 1 Gm-D5w Bag IVPB 100 mls/hr DAILY [place] Administration Loratadine 10 mg 10/31/17 22:00 10/31/17 21:04 Claritin - PO 10 mg HS [place] Administration Lorazepam 2 mg 11/01/17 14:00 Ativan - PO TID [place] Non-Formulary Medication 1 applic 10/31/17 22:00 Glycerin/Min Oil/Wh.Petrolatum [Lubriderm Sensitive Skin Lot] TP BID BEL[place] [id number] Ethyl Esters 1 gm 11/01/17 07:00 11/01/17 06:14 Lovaza - PO 1 gm 0700,1700 [place] Administration Oseltamivir Phosphate 75 mg 10/31/17 10:00 11/01/17 09:15 Tamiflu - PO 11/03/17 09:59 75 mg BID [place] Administration Risperidone 2 mg 11/01/17 17:00 Risperdal - PO 0700,1700,2100 [place] Senna 2 tab 10/31/17 22:00 10/31/17 21:04 Senna - PO 2 tab HS [place] Administration Triamcinolone Acetonide 1 applic 10/31/17 22:00 11/01/17 09:13 Aristocort 0.1% Cream - TP 1 applic BID [place] Administration Microbiology 11/01/17 10:00 Nasopharyngeal Swab Influenza Types A,B Antigen (LEONOR) - Final , negative 11/01/17 10:00 Nasopharyngeal Swab - Final 10/31/17 00:48 Urine - Urine Clean Catch Urine Culture - Final NO GROWTH OBTAINED 10/30/17 22:30 Blood - Peripheral Venous Blood Culture - Preliminary NO GROWTH OBTAINED AFTER 24 HOURS, INCUBATION TO CONTINUE FOR 4 DAYS. 10/30/17 22:15 Blood - Peripheral Venous Blood Culture - Preliminary NO GROWTH OBTAINED AFTER 24 HOURS, INCUBATION TO CONTINUE FOR 4 DAYS. ASSESSMENT/PLAN: 1. pulm - community acquired PNA - repeat chest xray today congestive changes with infilitrates at bases, wbc trending downward, low grade temp noted, continue zithromax and rocephin day 2 - keep spo2 above 92% with supplemental O2 - start standing duonebs - staff reports a recent outbreak of influenza at the halfway, rapid influenza is negative, continue empiric tamiflu 2. cardiovascular congestive heart failure - elevated bnp, pulmonary congestion noted on repeat xray, pending echo, continue lasix 40mg iv daily - strict i/o and daily weight 3. psych - continue home meds for anxiety - direct care staff with patient FEN hyponatremia - secondary to chf, resolving with lasix, close following - chopped diet ppx - scd - pepcid - heparin Disposition: requires inpatient admission Visit type - Emergency Visit Emergency Visit: Yes ED Registration Date: 10/31/17 Care time: The patient presented to the Emergency Department on the above date and was hospitalized for further evaluation of their emergent condition. - New Patient This patient is new to me today: Yes Date on this admission: 11/01/17 - Critical Care Critical Care patient: No - Discharge Referral Referred to [facility] No
[2017-11-01] MEDS: LORazepam 0.5 MG TABLET PO SCH ×2 (13:38→21:19)
[2017-11-01] MEDS: risperiDONE 1 MG TABLET (FP) PO SCH ×3 (17:19→21:25)
--- NOTE | 2017-11-01 19:11 | CON.CARD ---
Consult Consult Specialty:: Cardiology Referred by:: Hospitalist Reason for Consultation:: Cardiac evaluation - History of Present Illness History of Present Illness: Patient is a 56 year old male mentally challenged lives at a residence who presents with cough and fever. Of note one of the resident developed influenza last week and the remaining three were given prophylactic Tamiflu for one week. Patient was transferred due to above symptoms. History was obtained from medical record. He is awake and speaks incoherently. He does not seem to be in distress. AID is by bedside. - History Source History Provided By: Medical Record, Caregiver Limitations to Obtaining History: Physical Impairment - Past Medical History DIRECTOR HOME: Yes: Other (Mentally challenged) - Past Surgical History Past Surgical History: Yes: None - Alcohol/Substance Use Hx Alcohol Use: No - Smoking History Smoking history: Never smoked Have you smoked in the past 12 months: No Aproximately how many cigarettes per day: 0 Home Medications - Allergies Allergies/Adverse Reactions: Allergies Allergy/AdvReac Type Severity Reaction Status Date / Time lindane [From [facility]] Allergy Verified 04/27/17 08:41 Phenothiazines Allergy Verified 04/27/17 08:41 thioridazine HCl Allergy Verified 04/27/17 08:41 [From Mellrosa isela] - Home Medications Home Medications: Ambulatory Orders Ascorbate Calcium [Vitamin C] 1,000 mg PO DAILY 07/18/16 Benztropine Mesylate 0.5 mg PO BID 07/18/16 Cetirizine HCl [Wal-Zyr] 10 mg PO HS 07/18/16 Colloidal Oatmeal [Aveeno Bath -] 1 each TP MOWEFR 07/18/16 Docusate Sodium [Colace -] 100 mg PO BID 07/18/16 Fluoxetine HCl 80 mg PO DAILY 07/18/16 Lorazepam [Ativan] 2 mg PO TID 07/18/16 [place]-3 Fatty Acids [[place]-3] 1,000 mg PO BID 07/18/16 Risperidone [Risperdal -] 2 mg PO TID 07/18/16 Sennosides [Senna -] 2 tab PO HS 07/18/16 hydrOXYzine HCL [Atarax -] 50 mg PO TID 07/18/16 Cholecalciferol (Vitamin D3) [Vitamin D3 -] 1,000 unit PO DAILY 11/27/16 Glycerin/Min Oil/Wh.petrolatum [Lubriderm Sensitive Skin Lot] 1 applic TP BID Hydrocortisone 2.5% Lotion [Hytone 2.5% Lotion -] 1 applic TP BID #1 bottle Triamcinolone 0.1% Cream 1 applic TP BID 03/14/17 Bacitracin/Polymyxin B Sulfate [Bacitracin-Polymyxin Ointment] 1 applic TP DAILY #1 oint...g. 04/27/17 Acetaminophen 325 mg PO PRN 10/30/17 Oseltamivir Phosphate 75 mg PO DAILY 10/30/17 Family Disease History - Family Disease History Family History: Unable to Obtain Review of Systems Unable to obtain ROS, reason: Unable to obtain Vital Signs: Vital Signs Temperature 98.4 F 11/01/17 14:35 Pulse Rate 89 11/01/17 14:35 Respiratory Rate 17 11/01/17 14:35 Blood Pressure 123/53 11/01/17 14:35 O2 Sat by Pulse Oximetry (%) 93 L 11/01/17 14:35 Neck: Yes: Supple Respiratory: Yes: Diminished Gastrointestinal: Yes: Normal Bowel Sounds, Soft. No: Tenderness Cardiovascular: Yes: Regular Rate and Rhythm JVD: No Carotid Bruit: No PMI: Non-Displaced Heart Sounds: Yes: S1, S2. No: Gallop Edema: No - Other Data Labs, Other Data: CBC, BMP 11/01/17 07:18 11/01/17 07:00 Troponin, BNP 11/01/17 11/01/17 07:18 07:18 Troponin I 0.03 B-Natriuretic Peptide 252.67 H Laboratory Results - last 24 hr 11/01/17 11/01/17 11/01/17 07:00 07:18 07:18 WBC 10.8 D RBC 4.17 Hgb 12.1 Hct 35.0 L MCV 83.9 MCH 29.1 MCHC 34.7 RDW 13.4 Plt Count 162 MPV 8.1 Neutrophils % 86.4 H Lymphocytes % 5.9 L D Monocytes % 6.9 Eosinophils % 0.6 D Basophils % 0.2 D Sodium 133 L Potassium 3.8 Chloride 100 Carbon Dioxide 26 Anion Gap 7 L BUN 18 Creatinine 0.9 Random Glucose 108 H Calcium 8.0 L Magnesium Troponin I B-Natriuretic Peptide 252.67 H Cholesterol 146 Echo: Report Reviewed (Normal LV systolic function, mild MR and TR) Imaging - Results Chest X-ray: Report Reviewed (Congestive changes and infiltrates) Problem List - Problems (1) Leukocytosis Code(s): D72.829 - ELEVATED WHITE BLOOD CELL COUNT, UNSPECIFIED (2) URI (upper respiratory infection) Code(s): J06.9 - ACUTE UPPER RESPIRATORY INFECTION, UNSPECIFIED (3) Shortness of breath Code(s): R06.02 - SHORTNESS OF BREATH (4) Hyponatremia Code(s): E87.1 - HYPO-OSMOLALITY AND HYPONATREMIA (5) Cough Code(s): R05 - COUGH Assessment/Plan 1. Clinical presentation suggests URI, negative so far for influenza 2. Mentally challenged with developmental disorder 3. Leukocytosis 4. Hyponatremia PLAN: 1. Empiric antibiotic coverage 2. Tamiflu 3. Diuretics as needed 4. Transthoracic echocardiography was reviewed 5. No need for further cardiac evaluation or therapy Further plans are to follow Isidoro Hanley MD
[2017-11-01] MEDS: LORATADINE 10 MG TABLET PO SCH (21:19)
[2017-11-01] MEDS: SENNOSIDES 8.6MG TABLET (FP) PO SCH (21:19)
[2017-11-01] MEDS: ACETAMINOPHEN 325 MG TABLET (FP) PO PRN (21:22)
[2017-11-02] MEDS ORDERED: PT OWN MED DRAWER 7, Y5N ONE ×4 (06:21→21:21)
[2017-11-02] MEDS: LORazepam 0.5 MG TABLET PO SCH ×3 (06:26→21:22)
[2017-11-02] MEDS: risperiDONE 1 MG TABLET (FP) PO SCH ×3 (06:26→21:30)
[2017-11-02] MEDS: DOCUSATE SODIUM 100 MG CAPSULE (FP) PO SCH ×2 (06:26→16:58)
[2017-11-02] MEDS: hydrOXYzine HCL 25 MG TABLET (FP) PO SCH ×3 (06:26→21:23)
[2017-11-02] MEDS: OMEGA-3 ACID ETHYL ESTERS (FATTY-ACIDS) 1 GM CAPSULE (FP) PO SCH ×2 (06:27→16:58)
[2017-11-02] MEDS: [UNRECOGNIZED DRUG - MIXTURE] TP SCH ×2 (07:07→07:09)
--- NOTE | 2017-11-02 09:08 | PN ---
Physical Exam: SUBJECTIVE: Patient seen and examined, resting comfortably in bed, moist cough noted, wants to go home. OBJECTIVE: Patient is a 56 y/o male with a past medical history of moderate developmental delays, intermittent explosive disorder, patient was admitted from the emergency department for PNA and acute congestive heart failure. Vital Signs Period Temp Pulse Resp BP Sys/Boland Pulse Ox Last 24 Hr 97.5 F-99.7 F 82-89 17-20 109-135/53-74 93-96 GENERAL: The patient is awake, alert, and fully oriented, in no acute distress. HEAD: Normal with no signs of trauma. EYES: PERRL, extraocular movements intact, sclera anicteric, conjunctiva clear. No ptosis. ENT: Ears normal, nares patent, oropharynx clear without exudates, moist mucous membranes. NECK: Trachea midline, full range of motion, supple. LUNGS: Breath sounds equal, course rhonchi to apexes, diminished to bases, no wheezes, no crackles, no accessory muscle use. HEART: Regular rate and rhythm, S1, S2 without murmur, rub or gallop. ABDOMEN: Soft, nontender, nondistended, normoactive bowel sounds, no guarding, no rebound, no hepatosplenomegaly, no masses. EXTREMITIES: 2+ pulses, warm, well-perfused, no edema. NEUROLOGICAL: Cranial nerves II through XII grossly intact. Normal speech, gait not observed. PSYCH: Normal mood, normal affect. SKIN: Warm, dry, normal turgor, no rashes or lesions noted Laboratory Results - last 24 hr 11/01/17 11/01/17 07:18 07:18 Magnesium 2.0 B-Natriuretic Peptide 252.67 H Selected Entries 10/30/17 10/31/17 11/02/17 22:06 00:57 11:27 Weight 86.183 kg 84.368 kg 79.393 kg Active Medications Generic Name Dose Route Start Last Admin Trade Name Freq PRN Reason Stop Dose Admin Acetaminophen 650 mg 10/31/17 09:51 11/01/17 21:22 Tylenol - PO 650 mg Q6H PRN Administration FEVER Albuterol Sulfate 1 amp 10/31/17 11:44 10/31/17 21:10 Ventolin 0.083% Nebulizer Soln - NEB 1 amp Q6H PRN Administration SHORT OF BREATH/WHEEZING Ascorbic Acid 1,000 mg 11/01/17 10:00 11/01/17 09:16 Vitamin C - PO 1,000 mg DAILY [facility] Administration Azithromycin 500 mg 10/31/17 10:00 11/01/17 09:16 Zithromax - PO 500 mg DAILY [facility] Administration Benztropine Mesylate 0.5 mg 10/31/17 22:00 11/01/17 21:19 Cogentin - PO 0.5 mg BID [facility] Administration Cholecalciferol 1,000 unit 11/01/17 10:00 11/01/17 09:16 Vitamin D3 - PO 1,000 unit DAILY [facility] Administration Docusate Sodium 100 mg 11/01/17 07:00 11/02/17 06:26 Colace - PO 100 mg 0700,1700 [facility] Administration Fluoxetine HCl 80 mg 11/01/17 10:00 11/01/17 09:15 Prozac - PO 80 mg DAILY [facility] Administration Furosemide 40 mg 10/31/17 10:00 11/01/17 09:15 Lasix Injection - IVPUSH 40 mg DAILY [facility] Administration Heparin Sodium (Porcine) 5,000 unit 10/31/17 10:00 11/01/17 21:20 Heparin - SQ 5,000 unit BID [facility] Administration Hydrocortisone 1 applic 10/31/17 22:00 11/01/17 21:20 Hytone 2.5% Lotion - TP 1 applic BID [facility] Administration Hydroxyzine HCl 50 mg 10/31/17 22:00 11/02/17 06:26 Atarax - PO 50 mg TID [facility] Administration CEFTRIAXONE 1 G/50 ML PREMIX 50 mls @ 100 mls/hr 10/31/17 10:00 11/01/17 09: 14 Ceftriaxone 1 Gm-D5w Bag IVPB 100 mls/hr DAILY [facility] Administration Loratadine 10 mg 10/31/17 22:00 11/01/17 21:19 Claritin - PO 10 mg HS [facility] Administration Lorazepam 2 mg 11/01/17 14:00 11/02/17 06:26 Ativan - PO 2 mg TID [facility] Administration Zrdke-5-Sygq Ethyl Esters 1 gm 11/01/17 07:00 11/02/17 06:27 Lovaza - PO 1 gm 0700,1700 [facility] Administration Oseltamivir Phosphate 75 mg 10/31/17 10:00 11/01/17 21:19 Tamiflu - PO 11/03/17 09:59 75 mg BID [facility] Administration Risperidone 2 mg 11/01/17 17:00 11/02/17 06:26 Risperdal - PO 2 mg 0700,1700,2100 [facility] Administration Senna 2 tab 10/31/17 22:00 11/01/17 21:19 Senna - PO 2 tab HS [facility] Administration Triamcinolone Acetonide 1 applic 10/31/17 22:00 11/01/17 21:26 Aristocort 0.1% Cream - TP 1 applic BID [facility] Administration Microbiology 10/30/17 22:30 Blood - Peripheral Venous Blood Culture - Preliminary NO GROWTH OBTAINED AFTER 48 HOURS, INCUBATION TO CONTINUE FOR 3 DAYS. 10/30/17 22:15 Blood - Peripheral Venous Blood Culture - Preliminary NO GROWTH OBTAINED AFTER 48 HOURS, INCUBATION TO CONTINUE FOR 3 DAYS. 11/01/17 10:00 Nasopharyngeal Swab Influenza Types A,B Antigen (LEONOR) - Final , negative 11/01/17 10:00 Nasopharyngeal Swab - Final 10/31/17 00:48 Urine - Urine Clean Catch Urine Culture - Final NO GROWTH OBTAINED IMAGING CXR 11/01/17: billateral patchy infilitrates, congestive changes CXR 10/31/17: congestive changes, with progressive infiltrates echo: ef 50-55%, severe MR,moderate TR ASSESSMENT/PLAN: 1. pulm - community acquired PNA - leukocytosis resolved, patient is afebrile, continue zithromax and rocephin day 3 - chest xray today, persistent athlecatic/infilitrate changes noted - keep spo2 above 92% with supplemental O2 - continue khris almeida - staff reports a recent outbreak of influenza at the [facility], rapid influenza is negative, continue empiric tamiflu 2. cardiovascular systolic congestive heart failure - 5kg weight loss noted, continue lasix 40mg iv daily - strict i/o and daily weight 3. psych intermittent explosive disorder - continue home meds for anxiety - direct care staff with patient FEN hyponatremia - secondary to chf, resolving with lasix, close following - chopped diet ppx - scd - pepcid - heparin Disposition: requires inpatient admission Visit type - Emergency Visit Emergency Visit: Yes ED Registration Date: 10/31/17 Care time: The patient presented to the Emergency Department on the above date and was hospitalized for further evaluation of their emergent condition. - New Patient This patient is new to me today: No - Critical Care Critical Care patient: No - Discharge Referral Referred to [facility] Med P.C.: No
[2017-11-02] MEDS: FUROSEMIDE 40 MG/4 ML INJECTABLE VIAL IVPUSH SCH (09:35)
[2017-11-02] MEDS: HYDROCORTISONE 2.5% LOTION - 1 BOTTLE TP SCH ×2 (09:36→21:26)
[2017-11-02] MEDS: TRIAMCINOLONE ACET 0.1% CREAM 15 GM TUBE TP SCH ×2 (09:36→21:26)
[2017-11-02] MEDS: CEFTRIAXONE 1 G/50 ML PREMIX 50 ML IVPB SCH (09:37)
[2017-11-02] MEDS: OSELTAMIVIR PHOSPHATE 75 MG CAPSULE PO SCH ×2 (09:37→21:25)
[2017-11-02] MEDS: AZITHROMYCIN 250 MG TABLET PO SCH (09:37)
[2017-11-02] MEDS: FLUoxetine HCL 20 MG CAPSULE (FP) PO SCH (09:37)
[2017-11-02] MEDS: ASCORBIC ACID 500 MG TABLET (FP) PO SCH (09:37)
[2017-11-02] MEDS: CHOLECALCIFEROL (VITAMIN D3) 1,000 UNIT TABLET (FP) PO SCH (09:37)
[2017-11-02] MEDS: BENZTROPINE MESYLATE 0.5 MG TABLET (FP) PO SCH ×2 (09:37→21:25)
[2017-11-02] MEDS: HEPARIN NA (PORCINE) 5,000 UNITS/ML 1ML VIAL SQ SCH ×2 (09:38→21:25)
--- NOTE | 2017-11-02 12:20 | PN ---
Progress Note, Physician Chief Complaint: Not in distress History of Present Illness: Patient was seen and examined. Mentally challenged. Chart was reviewed No events - Current Medication List Current Medications: Active Medications Acetaminophen (Tylenol -) 650 mg PO Q6H PRN PRN Reason: FEVER Last Admin: 11/01/17 21:22 Dose: 650 mg Albuterol Sulfate (Ventolin 0.083% Nebulizer Soln -) 1 amp NEB Q6H PRN PRN Reason: SHORT OF BREATH/WHEEZING Last Admin: 10/31/17 21:10 Dose: 1 amp Albuterol/Ipratropium (Duoneb -) 1 amp NEB RQID [facility] Ascorbic Acid (Vitamin C -) 1,000 mg PO DAILY [facility] Last Admin: 11/02/17 09:37 Dose: 1,000 mg Azithromycin (Zithromax -) 500 mg PO DAILY [facility] Last Admin: 11/02/17 09:37 Dose: 500 mg Benztropine Mesylate (Cogentin -) 0.5 mg PO BID [facility] Last Admin: 11/02/17 09:37 Dose: 0.5 mg Cholecalciferol (Vitamin D3 -) 1,000 unit PO DAILY [facility] Last Admin: 11/02/17 09:37 Dose: 1,000 unit Docusate Sodium (Colace -) 100 mg PO 0700,1700 [facility] Last Admin: 11/02/17 06:26 Dose: 100 mg Fluoxetine HCl (Prozac -) 80 mg PO DAILY [facility] Last Admin: 11/02/17 09:37 Dose: 80 mg Furosemide (Lasix Injection -) 40 mg IVPUSH DAILY [facility] Last Admin: 11/02/17 09:35 Dose: 40 mg Heparin Sodium (Porcine) (Heparin -) 5,000 unit SQ BID [facility] Last Admin: 11/02/17 09:38 Dose: 5,000 unit Hydrocortisone (Hytone 2.5% Lotion -) 1 applic TP BID [facility] Last Admin: 11/02/17 09:36 Dose: 1 applic Hydroxyzine HCl (Atarax -) 50 mg PO TID [facility] Last Admin: 11/02/17 06:26 Dose: 50 mg CEFTRIAXONE 1 G/50 ML PREMIX (Ceftriaxone 1 Gm-D5w Bag) 50 mls @ 100 mls/hr IVPB DAILY [facility] Last Admin: 11/02/17 09:37 Dose: 100 mls/hr Loratadine (Claritin -) 10 mg PO HS [facility] Last Admin: 11/01/17 21:19 Dose: 10 mg Lorazepam (Ativan -) 2 mg PO TID [facility] Last Admin: 11/02/17 06:26 Dose: 2 mg Qyhzk-9-Szal Ethyl Esters (Lovaza -) 1 gm PO 0700,1700 [facility] Last Admin: 11/02/17 06:27 Dose: 1 gm Oseltamivir Phosphate (Tamiflu -) 75 mg PO BID [facility] Stop: 11/03/17 09:59 Last Admin: 11/02/17 09:37 Dose: 75 mg Risperidone (Risperdal -) 2 mg PO 0700,1700,2100 [facility] Last Admin: 11/02/17 06:26 Dose: 2 mg Senna (Senna -) 2 tab PO HS [facility] Last Admin: 11/01/17 21:19 Dose: 2 tab Triamcinolone Acetonide (Aristocort 0.1% Cream -) 1 applic TP BID [facility] Last Admin: 11/02/17 09:36 Dose: 1 applic - Objective Vital Signs: Vital Signs Temperature 97.5 F L 11/02/17 11:54 Pulse Rate 86 11/02/17 11:54 Respiratory Rate 19 11/02/17 11:54 Blood Pressure 112/63 11/02/17 11:54 O2 Sat by Pulse Oximetry (%) 93 L 11/02/17 06:34 Neck: Yes: Supple Cardiovascular: Yes: Regular Rate and Rhythm, S1, S2 Respiratory: Yes: CTA Bilaterally Gastrointestinal: Yes: Normal Bowel Sounds, Soft. No: Tenderness Edema: No Problem List - Problems (1) Leukocytosis Code(s): D72.829 - ELEVATED WHITE BLOOD CELL COUNT, UNSPECIFIED (2) URI (upper respiratory infection) Code(s): J06.9 - ACUTE UPPER RESPIRATORY INFECTION, UNSPECIFIED (3) Shortness of breath Code(s): R06.02 - SHORTNESS OF BREATH (4) Hyponatremia Code(s): E87.1 - HYPO-OSMOLALITY AND HYPONATREMIA (5) Cough Code(s): R05 - COUGH Assessment/Plan 1. Clinical presentation suggests URI, negative so far for influenza 2. Mentally challenged with developmental disorder 3. Leukocytosis 4. Hyponatremia PLAN: 1. Empiric antibiotic coverage 2. Tamiflu 3. Diuretics as needed 4. No need for further cardiac evaluation or therapy Further plans are to follow Isidoro Hanley MD
[2017-11-02] MEDS: ALBUTEROL SO4 2.5/IPRATROPIUM 0.5 INH SOL 3 ML VIAL.NEB. NEB SCH ×3 (12:45→21:26)
[2017-11-02 13:29] LABS: ANION GAP 7 (8-16); BLOOD UREA NITROGEN 19 mg/dl (7-18); CALCIUM 7.9 mg/dl (8.4-10.2); CHLORIDE 100 mmol/L (98-107); CO2 26 mmol/L (22-28); GLUCOSE,RANDOM 110 mg/dl (74-106); PHOSPHOROUS 3.8 mg/dl (2.5-4.6); POTASSIUM 4.4 mmol/L (3.5-5.1); SODIUM 133 mmol/L (136-145)
[2017-11-02 14:01] LABS: BASO % 0.3 % (0-2.0); EOS % 2.4 % (0-4.5); HEMATOCRIT 39.1 % (35.4-49); HEMOGLOBIN 13.4 GM/dl (11.7-16.9); LYMPH % 10.1 % (8-40); MCH 28.7 pg (25.7-33.7); MCHC 34.2 g/dl (32.0-35.9); MEAN PLT VOLUME 7.8 fl (7.5-11.1); MONO % 9.2 % (3.8-10.2); PLATELET COUNT 258 K/MM3 (134-434); RBC 4.66 M/mm3 (4.00-5.60); RDW 13.7 % (11.9-15.9); WHITE BLOOD COUNT 9.2 K/mm3 (4.0-10.8)
[2017-11-02] MEDS: ACETAMINOPHEN 325 MG TABLET (FP) PO PRN (21:23)
[2017-11-02] MEDS: SENNOSIDES 8.6MG TABLET (FP) PO SCH (21:25)
[2017-11-02] MEDS: LORATADINE 10 MG TABLET PO SCH (21:25)
[2017-11-03] MEDS: risperiDONE 1 MG TABLET (FP) PO SCH ×3 (06:13→21:12)
[2017-11-03] MEDS: LORazepam 0.5 MG TABLET PO SCH ×3 (06:14→21:09)
[2017-11-03] MEDS: hydrOXYzine HCL 25 MG TABLET (FP) PO SCH ×3 (06:14→21:12)
[2017-11-03] MEDS: DOCUSATE SODIUM 100 MG CAPSULE (FP) PO SCH ×2 (06:14→16:38)
[2017-11-03] MEDS ORDERED: PT OWN MED DRAWER 7, Y5N ONE ×3 (06:33→21:05)
[2017-11-03] MEDS: OMEGA-3 ACID ETHYL ESTERS (FATTY-ACIDS) 1 GM CAPSULE (FP) PO SCH ×2 (06:41→16:35)
[2017-11-03] MEDS: ALBUTEROL SO4 2.5/IPRATROPIUM 0.5 INH SOL 3 ML VIAL.NEB. NEB SCH ×4 (08:35→21:12)
--- NOTE | 2017-11-03 09:40 | PN ---
Progress Note, Physician Chief Complaint: Not in distress History of Present Illness: Patient was seen and examined. Mentally challenged. Chart was reviewed No events last night - Current Medication List Current Medications: Active Medications Acetaminophen (Tylenol -) 650 mg PO Q6H PRN PRN Reason: FEVER Last Admin: 11/02/17 21:23 Dose: 650 mg Albuterol Sulfate (Ventolin 0.083% Nebulizer Soln -) 1 amp NEB Q6H PRN PRN Reason: SHORT OF BREATH/WHEEZING Last Admin: 10/31/17 21:10 Dose: 1 amp Albuterol/Ipratropium (Duoneb -) 1 amp NEB RQID [facility] Last Admin: 11/02/17 21:26 Dose: 1 amp Ascorbic Acid (Vitamin C -) 1,000 mg PO DAILY [facility] Last Admin: 11/02/17 09:37 Dose: 1,000 mg Azithromycin (Zithromax -) 500 mg PO DAILY [facility] Last Admin: 11/02/17 09:37 Dose: 500 mg Benztropine Mesylate (Cogentin -) 0.5 mg PO BID [facility] Last Admin: 11/02/17 21:25 Dose: 0.5 mg Cholecalciferol (Vitamin D3 -) 1,000 unit PO DAILY [facility] Last Admin: 11/02/17 09:37 Dose: 1,000 unit Docusate Sodium (Colace -) 100 mg PO 0700,1700 [facility] Last Admin: 11/03/17 06:14 Dose: 100 mg Fluoxetine HCl (Prozac -) 80 mg PO DAILY [facility] Last Admin: 11/02/17 09:37 Dose: 80 mg Furosemide (Lasix Injection -) 40 mg IVPUSH DAILY [facility] Last Admin: 11/02/17 09:35 Dose: 40 mg Heparin Sodium (Porcine) (Heparin -) 5,000 unit SQ BID [facility] Last Admin: 11/02/17 21:25 Dose: 5,000 unit Hydrocortisone (Hytone 2.5% Lotion -) 1 applic TP BID [facility] Last Admin: 11/02/17 21:26 Dose: 1 applic Hydroxyzine HCl (Atarax -) 50 mg PO TID [facility] Last Admin: 11/03/17 06:14 Dose: 50 mg CEFTRIAXONE 1 G/50 ML PREMIX (Ceftriaxone 1 Gm-D5w Bag) 50 mls @ 100 mls/hr IVPB DAILY [facility] Last Admin: 11/02/17 09:37 Dose: 100 mls/hr Loratadine (Claritin -) 10 mg PO HS [facility] Last Admin: 11/02/17 21:25 Dose: 10 mg Lorazepam (Ativan -) 2 mg PO TID [facility] Last Admin: 11/03/17 06:14 Dose: 2 mg Skibc-0-Jcym Ethyl Esters (Lovaza -) 1 gm PO 0700,1700 [facility] Last Admin: 11/03/17 06:41 Dose: 1 gm Oseltamivir Phosphate (Tamiflu -) 75 mg PO BID [facility] Stop: 11/03/17 09:59 Last Admin: 11/02/17 21:25 Dose: 75 mg Risperidone (Risperdal -) 2 mg PO 0700,1700,2100 [facility] Last Admin: 11/03/17 06:13 Dose: 2 mg Senna (Senna -) 2 tab PO HS [facility] Last Admin: 11/02/17 21:25 Dose: 2 tab Triamcinolone Acetonide (Aristocort 0.1% Cream -) 1 applic TP BID [facility] Last Admin: 11/02/17 21:26 Dose: 1 applic - Objective Vital Signs: Vital Signs Temperature 97.9 F 11/03/17 05:00 Pulse Rate 80 11/03/17 05:00 Respiratory Rate 19 11/03/17 08:51 Blood Pressure 112/59 11/03/17 05:00 O2 Sat by Pulse Oximetry (%) 95 11/03/17 08:51 HENT: Yes: Atraumatic Neck: Yes: Supple Cardiovascular: Yes: Regular Rate and Rhythm, S1, S2 Respiratory: Yes: Diminished Gastrointestinal: Yes: Normal Bowel Sounds, Soft. No: Tenderness Edema: No Labs: CBC, BMP 11/02/17 11:45 11/02/17 11:45 Problem List - Problems (1) Leukocytosis Code(s): D72.829 - ELEVATED WHITE BLOOD CELL COUNT, UNSPECIFIED Qualifiers: Leukocytosis type: unspecified Qualified Code(s): D72.829 - Elevated white blood cell count, unspecified (2) URI (upper respiratory infection) Code(s): J06.9 - ACUTE UPPER RESPIRATORY INFECTION, UNSPECIFIED Qualifiers: URI type: unspecified URI Qualified Code(s): J06.9 - Acute upper respiratory infection, unspecified (3) Shortness of breath Code(s): R06.02 - SHORTNESS OF BREATH (4) Hyponatremia Code(s): E87.1 - HYPO-OSMOLALITY AND HYPONATREMIA (5) Cough Code(s): R05 - COUGH Assessment/Plan 1. Clinical presentation suggests URI 2. Mentally challenged with developmental disorder 3. Leukocytosis 4. Hyponatremia PLAN: 1. Empiric antibiotic coverage 2. Tamiflu 3. Diuretics as needed 4. No need for further cardiac evaluation or therapy Further plans are to follow. Supportive care Isidoro Hanley MD
[2017-11-03] MEDS: FUROSEMIDE 40 MG/4 ML INJECTABLE VIAL IVPUSH SCH (10:12)
[2017-11-03] MEDS: ASCORBIC ACID 500 MG TABLET (FP) PO SCH (10:12)
[2017-11-03] MEDS: CEFTRIAXONE 1 G/50 ML PREMIX 50 ML IVPB SCH (10:12)
[2017-11-03] MEDS: CHOLECALCIFEROL (VITAMIN D3) 1,000 UNIT TABLET (FP) PO SCH (10:12)
[2017-11-03] MEDS: AZITHROMYCIN 250 MG TABLET PO SCH (10:12)
[2017-11-03] MEDS: FLUoxetine HCL 20 MG CAPSULE (FP) PO SCH (10:12)
[2017-11-03] MEDS: BENZTROPINE MESYLATE 0.5 MG TABLET (FP) PO SCH ×2 (10:13→21:12)
[2017-11-03] MEDS: HEPARIN NA (PORCINE) 5,000 UNITS/ML 1ML VIAL SQ SCH ×2 (10:13→21:09)
[2017-11-03] MEDS: TRIAMCINOLONE ACET 0.1% CREAM 15 GM TUBE TP SCH ×2 (10:39→21:12)
[2017-11-03] MEDS: HYDROCORTISONE 2.5% LOTION - 1 BOTTLE TP SCH ×2 (10:39→21:11)
[2017-11-03 12:28] LABS: BASO % 1.8 % (0-2.0); EOS % 3.7 % (0-4.5); HEMATOCRIT 39.6 % (35.4-49); HEMOGLOBIN 13.5 GM/dl (11.7-16.9); LYMPH % 12.9 % (8-40); MCH 28.5 pg (25.7-33.7); MCHC 34.2 g/dl (32.0-35.9); MEAN CELL VOLUME 83.4 fl (80-96); MEAN PLT VOLUME 7.6 fl (7.5-11.1); MONO % 10.9 % (3.8-10.2); NEUT % 70.7 % (42.8-82.8); PLATELET COUNT 281 K/MM3 (134-434); RBC 4.75 M/mm3 (4.00-5.60); RDW 13.8 % (11.9-15.9); WHITE BLOOD COUNT 11.5 K/mm3 (4.0-10.8)
--- NOTE | 2017-11-03 12:51 | PN ---
Physical Exam: SUBJECTIVE: Patient seen and examined, sitting in bedside chair, voices no complaints OBJECTIVE: Patient is a 56 y/o male with a past medical history of moderate developmental delays, intermittent explosive disorder, patient was admitted from the emergency department for PNA and acute congestive heart failure. Vital Signs Period Temp Pulse Resp BP Sys/Boland Pulse Ox Last 24 Hr 97.7 F-99.1 F 80-94 18-19 101-112/46-72 95-95 GENERAL: The patient is awake, alert, and fully oriented, in no acute distress. HEAD: Normal with no signs of trauma. EYES: PERRL, extraocular movements intact, sclera anicteric, conjunctiva clear. No ptosis. ENT: Ears normal, nares patent, oropharynx clear without exudates, moist mucous membranes. NECK: Trachea midline, full range of motion, supple. LUNGS: Breath sounds equal, course rhonchi to apexes, diminished to bases, no wheezes, no crackles, no accessory muscle use. HEART: Regular rate and rhythm, S1, S2 without murmur, rub or gallop. ABDOMEN: Soft, nontender, nondistended, normoactive bowel sounds, no guarding, no rebound, no hepatosplenomegaly, no masses. EXTREMITIES: 2+ pulses, warm, well-perfused, no edema. NEUROLOGICAL: Cranial nerves II through XII grossly intact. Normal speech, gait not observed. PSYCH: Normal mood, normal affect. SKIN: Warm, dry, normal turgor, no rashes or lesions noted Laboratory Results - last 24 hr 11/02/17 11/02/17 11/03/17 11:45 11:45 11:54 WBC 9.2 11.5 H RBC 4.66 4.75 Hgb 13.4 D 13.5 Hct 39.1 39.6 MCV 84.0 83.4 MCH 28.7 28.5 MCHC 34.2 34.2 RDW 13.7 13.8 Plt Count 258 D 281 MPV 7.8 7.6 Neutrophils % 78.0 70.7 Lymphocytes % 10.1 D 12.9 D Monocytes % 9.2 10.9 H Eosinophils % 2.4 D 3.7 Basophils % 0.3 1.8 D Sodium 133 L Potassium 4.4 Chloride 100 Carbon Dioxide 26 Anion Gap 7 L BUN 19 H Creatinine 1.0 Random Glucose 110 H Calcium 7.9 L Phosphorus 3.8 Magnesium 2.0 Active Medications Generic Name Dose Route Start Last Admin Trade Name Freq PRN Reason Stop Dose Admin Acetaminophen 650 mg 10/31/17 09:51 11/02/17 21:23 Tylenol - PO 650 mg Q6H PRN Administration FEVER Albuterol Sulfate 1 amp 10/31/17 11:44 10/31/17 21:10 Ventolin 0.083% Nebulizer Soln - NEB 1 amp Q6H PRN Administration SHORT OF BREATH/WHEEZING Albuterol/Ipratropium 1 amp 11/02/17 12:00 11/03/17 08:35 Duoneb - NEB 1 amp RQID [facility] Administration Ascorbic Acid 1,000 mg 11/01/17 10:00 11/03/17 10:12 Vitamin C - PO 1,000 mg DAILY [facility] Administration Azithromycin 500 mg 10/31/17 10:00 11/03/17 10:12 Zithromax - PO 500 mg DAILY [facility] Administration Benztropine Mesylate 0.5 mg 10/31/17 22:00 11/03/17 10:13 Cogentin - PO 0.5 mg BID [facility] Administration Cholecalciferol 1,000 unit 11/01/17 10:00 11/03/17 10:12 Vitamin D3 - PO 1,000 unit DAILY [facility] Administration Docusate Sodium 100 mg 11/01/17 07:00 11/03/17 06:14 Colace - PO 100 mg 0700,1700 [facility] Administration Fluoxetine HCl 80 mg 11/01/17 10:00 11/03/17 10:12 Prozac - PO 80 mg DAILY [facility] Administration Heparin Sodium (Porcine) 5,000 unit 10/31/17 10:00 11/03/17 10:13 Heparin - SQ 5,000 unit BID [facility] Administration Hydrocortisone 1 applic 10/31/17 22:00 11/03/17 10:39 Hytone 2.5% Lotion - TP 1 applic BID [facility] Administration Hydroxyzine HCl 50 mg 10/31/17 22:00 11/03/17 06:14 Atarax - PO 50 mg TID [facility] Administration CEFTRIAXONE 1 G/50 ML PREMIX 50 mls @ 100 mls/hr 10/31/17 10:00 11/03/17 10: 12 Ceftriaxone 1 Gm-D5w Bag IVPB 100 mls/hr DAILY [facility] Administration Loratadine 10 mg 10/31/17 22:00 11/02/17 21:25 Claritin - PO 10 mg HS [facility] Administration Lorazepam 2 mg 11/01/17 14:00 11/03/17 06:14 Ativan - PO 2 mg TID [facility] Administration Pjltu-9-Vvxr Ethyl Esters 1 gm 11/01/17 07:00 11/03/17 06:41 Lovaza - PO 1 gm 0700,1700 [facility] Administration Risperidone 2 mg 11/01/17 17:00 11/03/17 06:13 Risperdal - PO 2 mg 0700,1700,2100 [facility] Administration Senna 2 tab 10/31/17 22:00 11/02/17 21:25 Senna - PO 2 tab HS [facility] Administration Triamcinolone Acetonide 1 applic 10/31/17 22:00 11/03/17 10:39 Aristocort 0.1% Cream - TP 1 applic BID [facility] Administration Microbiology 10/30/17 22:30 Blood - Peripheral Venous Blood Culture - Preliminary NO GROWTH OBTAINED AFTER 72 HOURS, INCUBATION TO CONTINUE FOR 2 DAYS. 10/30/17 22:15 Blood - Peripheral Venous Blood Culture - Preliminary NO GROWTH OBTAINED AFTER 72 HOURS, INCUBATION TO CONTINUE FOR 2 DAYS. 11/01/17 10:00 Nasopharyngeal Swab Influenza Types A,B Antigen (LEONOR) - Final , negative 11/01/17 10:00 Nasopharyngeal Swab - Final, negative 10/31/17 00:48 Urine - Urine Clean Catch Urine Culture - Final NO GROWTH OBTAINED ASSESSMENT/PLAN: 1. pulm - community acquired PNA - slight leukocytosis noted,no bandemia, patient is afebrile, continue zithromax and rocephin day 4 - chest xray (11/03), persistent athlecatic/infilitrate changes noted - keep spo2 above 92% with supplemental O2 - continue standing duonebs - staff reports a recent outbreak of influenza at the [facility], rapid influenza is negative, continue empiric tamiflu 2. cardiovascular systolic congestive heart failure - 4.4kg weight loss noted, continue lasix 40mg iv daily - echo lv wnl, ef 60-65%, mild mr, tr - strict i/o and daily weight 3. psych intermittent explosive disorder - continue home meds for anxiety - direct care staff with patient FEN hyponatremia - secondary to chf, resolved with lasix, close following - chopped diet ppx - scd - pepcid - heparin Disposition: requires inpatient admission Visit type - Emergency Visit Emergency Visit: Yes ED Registration Date: 10/31/17 Care time: The patient presented to the Emergency Department on the above date and was hospitalized for further evaluation of their emergent condition. - New Patient This patient is new to me today: No - Critical Care Critical Care patient: No - Discharge Referral Referred to [facility] Med P.C.: No
[2017-11-03 13:01] LABS: ALBUMIN 2.6 g/dl (3.4-5.0); ANION GAP 7 (8-16); BILIRUBIN,TOTAL 0.2 mg/dL (0.2-1.0); BLOOD UREA NITROGEN 22 mg/dL (7-18); CHLORIDE 102 mmol/L (98-107); CO2 27 mmol/L (21-32); CREATININE 0.9 mg/dL (0.7-1.3); GLUCOSE,RANDOM 86 mg/dL (74-106); PHOSPHOROUS 3.9 mg/dL (2.5-4.9); SGPT/ALT 51 U/L (12-78); SODIUM 136 mmol/L (136-145); TOT PROT 7.1 g/dl (6.4-8.2)
[2017-11-03 13:02] LABS: ALK PHOS 137 U/L (45-117)
[2017-11-03 13:03] LABS: MAGNESIUM 2.3 mg/dL (1.8-2.4); POTASSIUM 4.8 mmol/L (3.5-5.1); SGOT/AST 28 U/L (15-37)
--- NOTE | 2017-11-03 16:32 | CONSULT ---
Admitting History and Physical - Primary Care Physician PCP: Paola Lu - Admission History of Present Illness: Patient is a 56 y/o male with a past medical history of moderate developmental delays, intermittent explosive disorder, patient was admitted from the emergency department for PNA and acute congestive heart failure. Pt was exposed to influenza at halfway & was put on Tamiflu prophylacticly. PO intake 75% all meals. chopped diet. Pt is conversive, self feeds. Pt is mentally challenged. No transfer summary in chart. Diet order at halfway? Limitations to Obtaining History: Clinical Condition - Past Medical History [employer]: Yes: Other (Mentally challenged) - Past Surgical History Past Surgical History: Yes: None - Smoking History Smoking history: Never smoked Have you smoked in the past 12 months: No Aproximately how many cigarettes per day: 0 - Alcohol/Substance Use Hx Alcohol Use: No History - Admission Reason For Visit: CHF/HYPONATREMIA - Diagnostics X-ray: Report Reviewed (chest xray (11/03), persistent athlecatic/infilitrate changes noted) - General Mental Status: Awake and Alert, Able to Follow Commands, Vague Attention: Distractible, Mild Impairment Ability to Follow Directions: Fair Head/Neck Control: Fair - Hearing Hearing: Normal Hearing Aide: No With Patient: No Speech Evaluation - Communication Primary Language: UKRAIN[place] Communication: Yes: Simple Responses, Dysarthria Oral Expression Ability: Yes: Moderate Impairment - Speech Production Able to Make Needs Known: Yes: Mildly Impaired, Moderately Impaired Intelligibility: Yes: Mildly Impaired, Moderately Impaired - Speech Characteristics Voice Loudness: Normal, Excessive Variation Voice Pitch: Yes: Normal Voice Phonatory-based Quality: Yes: Normal Speech Pattern: Impaired Speech Clarity: < 50% Articulation: Yes: Imprecise - Language/Auditory Comprehension Follows: Yes: 1 Stage Simple Commands - Swallow Evaluation/Bedside Assessment Current Nutritional Intake: Regular (chopped diet. Coarsely chopped), Thin Liquids Oral Secretions: Yes: WFL Dentition: Yes: Missing Teeth Facial Symmetry at Rest: Symmetrical Lingual Movement: Symmetric Laryngeal Movement: Able to Palpate Rate of Intake: Impulsive Labial Seal: WFL Chewing: Impaired (No noted mastication or bolus formation of chopped food.Pt propels the spoonful posteriorally and swallows it) Pocketing: None Timing of Swallow: Delayed Coughing/Throat Clear: No (occasional cough with and without food) Change in Voice: No Recommendations - Speech Evaluation, Impression/Plan Impression: No noted mastication or bolus formation of chopped food.Pt propels the spoonful posteriorally and swallows it. Coughs with and without PO intake - Disposition Discharge to: Adult Residence Recommendations: Modified Barium Swallow (to visualize oral and swallowing function, as out pt at [facility], to determine safety of chopped consistency.) - Recommendations Diet Consistency: Dysphagia Pureed Medication Administration: Crushed with applesauce Liquids: Thin Liquids
[2017-11-03] MEDS: SENNOSIDES 8.6MG TABLET (FP) PO SCH (21:11)
[2017-11-03] MEDS: LORATADINE 10 MG TABLET PO SCH (21:12)
[2017-11-04] MEDS: LORazepam 0.5 MG TABLET PO SCH ×2 (06:28→13:37)
[2017-11-04] MEDS: hydrOXYzine HCL 25 MG TABLET (FP) PO SCH ×2 (06:28→13:37)
[2017-11-04] MEDS: risperiDONE 1 MG TABLET (FP) PO SCH (06:29)
[2017-11-04] MEDS: DOCUSATE SODIUM 100 MG CAPSULE (FP) PO SCH (06:29)
[2017-11-04] MEDS: OMEGA-3 ACID ETHYL ESTERS (FATTY-ACIDS) 1 GM CAPSULE (FP) PO SCH (06:29)
[2017-11-04] MEDS: ALBUTEROL SO4 2.5/IPRATROPIUM 0.5 INH SOL 3 ML VIAL.NEB. NEB SCH ×2 (08:50→12:00)
[2017-11-04 08:58] VITALS: BP 107/77; PULSE 91; TEMP 97.6
[2017-11-04] MEDS: ASCORBIC ACID 500 MG TABLET (FP) PO SCH (09:25)
[2017-11-04] MEDS: CHOLECALCIFEROL (VITAMIN D3) 1,000 UNIT TABLET (FP) PO SCH (09:25)
[2017-11-04] MEDS: BENZTROPINE MESYLATE 0.5 MG TABLET (FP) PO SCH (09:25)
[2017-11-04] MEDS: CEFTRIAXONE 1 G/50 ML PREMIX 50 ML IVPB SCH (09:25)
[2017-11-04] MEDS: AZITHROMYCIN 250 MG TABLET PO SCH (09:25)
[2017-11-04] MEDS: HEPARIN NA (PORCINE) 5,000 UNITS/ML 1ML VIAL SQ SCH (09:25)
[2017-11-04] MEDS: FLUoxetine HCL 20 MG CAPSULE (FP) PO SCH (09:26)
[2017-11-04] MEDS: HYDROCORTISONE 2.5% LOTION - 1 BOTTLE TP SCH (09:26)
[2017-11-04] MEDS: TRIAMCINOLONE ACET 0.1% CREAM 15 GM TUBE TP SCH (09:26)
--- NOTE | 2017-11-04 11:11 | DS ---
Physical Exam: SUBJECTIVE: Patient seen and examined, sitting in bedside chair, voices no complaint, wants to go home. OBJECTIVE:This 56 yr old male who has a significant hx of MR, lives in a [facility] with 4 other residents and an aid. One of the residents developed influenza last week and the other three residents were put on the prophylactic tamiflu for one week. This 75 mg daily dose started on . On Wednesday, the pt developed a cough and last evening developed a fever. The Aid brought the pt to ER for evaluation. ER course was notable for: (1) CXR with finding of severe pulmonary congestion, no infiltrates. elevated BNP (2)hyponatremia at 126 (3) Vital Signs Period Temp Pulse Resp BP Sys/Boland Pulse Ox Last 24 Hr 97.6 F-98.7 F 77-91 18-20 107-119/61-83 93-98 PHYSICAL EXAM GENERAL: The patient is awake, alert, and fully oriented, in no acute distress. HEAD: Normal with no signs of trauma. EYES: PERRL, extraocular movements intact, sclera anicteric, conjunctiva clear. No ptosis. ENT: Ears normal, nares patent, oropharynx clear without exudates, moist mucous membranes. NECK: Trachea midline, full range of motion, supple. LUNGS: Breath sounds equal, clear to apexes, diminished to bases, no wheezes, no crackles, no accessory muscle use. HEART: Regular rate and rhythm, S1, S2 without murmur, rub or gallop. ABDOMEN: Soft, nontender, nondistended, normoactive bowel sounds, no guarding, no rebound, no hepatosplenomegaly, no masses. EXTREMITIES: 2+ pulses, warm, well-perfused, no edema. NEUROLOGICAL: Cranial nerves II through XII grossly intact. Normal speech, gait not observed. PSYCH: Normal mood, normal affect. SKIN: Warm, dry, normal turgor, no rashes or lesions noted LABS Laboratory Results - last 24 hr 11/03/17 11/03/17 11:54 11:54 WBC 11.5 H RBC 4.75 Hgb 13.5 Hct 39.6 MCV 83.4 MCH 28.5 MCHC 34.2 RDW 13.8 Plt Count 281 MPV 7.6 Neutrophils % 70.7 Lymphocytes % 12.9 D Monocytes % 10.9 H Eosinophils % 3.7 Basophils % 1.8 D Sodium 136 Potassium 4.8 Chloride 102 Carbon Dioxide 27 Anion Gap 7 L BUN 22 H Creatinine 0.9 Creat Clearance w eGFR > 60 Random Glucose 86 Calcium 8.0 L Phosphorus 3.9 Magnesium 2.3 Total Bilirubin 0.2 D AST 28 D ALT 51 Alkaline Phosphatase 137 H D Total Protein 7.1 Albumin 2.6 L Microbiology 10/30/17 22:30 Blood - Peripheral Venous Blood Culture - Preliminary NO GROWTH OBTAINED AFTER 96 HOURS, INCUBATION TO CONTINUE FOR 1 DAYS. 10/30/17 22:15 Blood - Peripheral Venous Blood Culture - Preliminary NO GROWTH OBTAINED AFTER 96 HOURS, INCUBATION TO CONTINUE FOR 1 DAYS. 11/01/17 10:00 Nasopharyngeal Swab Influenza Types A,B Antigen (LEONOR) - Final , negative 11/01/17 10:00 Nasopharyngeal Swab - Final, negative 10/31/17 00:48 Urine - Urine Clean Catch Urine Culture - Final NO GROWTH OBTAINED IMAGING chest xray 11/01/17, persistent athelactic/infilirate changes to bases chest xray 10/30/17: progressive pulmonary changes to bases HOSPITAL COURSE: * community acquired PNA, slight leukocytosis noted,no bandemia, patient is afebrile,patient was treated with zithromax and rocephin for 5 days with standing duonebs, spo2 was kept above 92% with supplement O2, patient's spo2 is 95% on room air. Staff ([facility]) reports a recent outbreak of influenza at the [facility], rapid influenza is negative, patient was given empiric tamiflu throughout admission. * systolic congestive heart failure, 5.4kg weight loss noted, patient was diursed with lasix 40mg iv daily, echo lv wnl, ef 60-65%, mild mr, tr, * intermittent explosive disorder, continue home meds for anxiety, direct care staff with patient * hyponatremia, secondary to chf, resolved with lasix, close following * speech and swallow study completed, recommends dysphagia puree diet, all medications crushed with applesauce. PLAN - discharge with VNS, back to [facility] - continue ceftin for 5 days - albuterol nebulizers as needed - strict follow up with primary care physician within 1 week Date of Admission:10/31/17 Date of Discharge: 11/04/17 Minutes to complete discharge: 45 Discharge Summary Reason For Visit: CHF/HYPONATREMIA Current Active Problems CHF (congestive heart failure) (Acute) Hyponatremia (Acute) Leukocytosis (Acute) Shortness of breath (Acute) URI (upper respiratory infection) (Acute) Condition: Improved - Instructions Diet, Activity, Other Instructions: continue ceftin (antibiotics) as prescribed continue albuterol nebulizer every 4 hours as needed for shortness of breath continue all medications as prescribed please follow up with your primary care physician within 1 week if any new or persistent symptoms please return to the emergency department Disposition: VNS/HOME HEALTH CARE - Home Medications Comprehensive Discharge Medication List: Ambulatory Orders Ascorbate Calcium [Vitamin C] 1,000 mg PO DAILY 07/18/16 Benztropine Mesylate 0.5 mg PO BID 07/18/16 Cetirizine HCl [Wal-Zyr] 10 mg PO HS 07/18/16 Colloidal Oatmeal [Aveeno Bath -] 1 each TP MOWEFR 07/18/16 Docusate Sodium [Colace -] 100 mg PO BID 07/18/16 Fluoxetine HCl 80 mg PO DAILY 07/18/16 Lorazepam [Ativan] 2 mg PO TID 07/18/16 [place]-3 Fatty Acids [[place]-3] 1,000 mg PO BID 07/18/16 Risperidone [Risperdal -] 2 mg PO TID 07/18/16 Sennosides [Senna -] 2 tab PO HS 07/18/16 hydrOXYzine HCL [Atarax -] 50 mg PO TID 07/18/16 Cholecalciferol (Vitamin D3) [Vitamin D3 -] 1,000 unit PO DAILY 11/27/16 Glycerin/Min Oil/Wh.petrolatum [Lubriderm Sensitive Skin Lot] 1 applic TP BID Hydrocortisone 2.5% Lotion [Hytone 2.5% Lotion -] 1 applic TP BID #1 bottle Triamcinolone 0.1% Cream 1 applic TP BID 03/14/17 Bacitracin/Polymyxin B Sulfate [Bacitracin-Polymyxin Ointment] 1 applic TP DAILY #1 oint...g. 04/27/17 Acetaminophen 325 mg PO PRN 10/30/17 Oseltamivir Phosphate 75 mg PO DAILY 10/30/17 This patient is new to me today: Yes Date on this admission: 11/04/17 Emergency Visit: No Critical Care patient: No - Discharge Referral Referred to [facility] Med [facility].C.: No
[2017-11-04 11:54] LABS: BASO % 3.9 % (0-2.0); EOS % 6.4 % (0-4.5); HEMATOCRIT 37.9 % (35.4-49); HEMOGLOBIN 12.9 GM/dl (11.7-16.9); LYMPH % 11.2 % (8-40); MCH 28.6 pg (25.7-33.7); MCHC 34.2 g/dl (32.0-35.9); MEAN CELL VOLUME 83.6 fl (80-96); MEAN PLT VOLUME 7.1 fl (7.5-11.1); MONO % 8.1 % (3.8-10.2); NEUT % 70.4 % (42.8-82.8); PLATELET COUNT 297 K/MM3 (134-434); RBC 4.53 M/mm3 (4.00-5.60); RDW 13.9 % (11.9-15.9); WHITE BLOOD COUNT 11.3 K/mm3 (4.0-10.8)
== END 2017-11-04 14:14 | disposition home health service (06) | DRG 193 ==
LOC: FER 21:48 → FM/S 10-31 00:57 → OBSVTOIN 10-31 02:02
PROVIDERS: ADMIT Internal Medicine; ATTEND Nurse Practitioner Family
DX: J18.9 Pneumonia, unspecified organism (principal); I50.21 Acute systolic (congestive) heart failure; E87.1 Hypo-osmolality and hyponatremia; F72 Severe intellectual disabilities; D72.829 Elevated white blood cell count, unspecified; J06.9 Acute upper respiratory infection, unspecified
CPT/HCPCS: 36415; 71045-TC-FY; 71046-TC-FY; 80048; 80053; 81003; 82465; 82550; 82553; 83735; 83880; 84100; 84484; 85025; 87040; 87086; 87804; 93005; 93306-TC; 94640; 97116-GP; 97161-GP; 99283-25; G0378; J1644; J2794

== ENCOUNTER 2019-08-05 13:30 | Emergency (ER) | payer OTHER ==
--- NOTE | 2019-08-05 14:07 | PDOC ---
History of Present Illness - General Chief Complaint: Revisit,Wound Recheck Stated Complaint: WOUND CHECK - History of Present Illness Initial Comments: The pt is a 58M with PMH of MR presenting to ED with care staff for open wound on the L elbow. Patient was seen here 2 days ago, evaluated by Ortho and placed in a splint to protect the wound. The pt has removed the splint. Pt denies arm pain. Care staff denies fevers. PMD: Dr. Levy 08/05/19 14:42 Past History - Past Medical History Allergies/Adverse Reactions: Allergies Allergy/AdvReac Type Severity Reaction Status Date / Time lindane [From Resonateell] Allergy Verified 04/27/17 08:41 Phenothiazines Allergy Verified 04/27/17 08:41 thioridazine HCl Allergy Verified 04/27/17 08:41 [From Kaden] Home Medications: Ambulatory Orders Ascorbate Calcium [Vitamin C] 1,000 mg PO DAILY 07/18/16 Benztropine Mesylate 0.5 mg PO BID 07/18/16 Cetirizine HCl [Wal-Zyr] 10 mg PO HS 07/18/16 Colloidal Oatmeal [Aveeno Bath -] 1 each TP MOWEFR 07/18/16 Docusate Sodium [Colace -] 100 mg PO BID 07/18/16 Fluoxetine HCl 80 mg PO DAILY 07/18/16 Lorazepam [Ativan] 2 mg PO TID 07/18/16 Strawn-3 Fatty Acids [Strawn-3] 1,000 mg PO BID 07/18/16 Risperidone [Risperdal -] 2 mg PO BID 07/18/16 Sennosides [Senna -] 2 tab PO HS 07/18/16 hydrOXYzine HCL [Atarax -] 50 mg PO TID 07/18/16 Cholecalciferol (Vitamin D3) [Vitamin D3 -] 1,000 unit PO DAILY 11/27/16 Glycerin/Min Oil/Wh.petrolatum [Lubriderm Sensitive Skin Lot] 1 applic TP BID Acetaminophen 325 mg PO PRN 10/30/17 Risperidone [Risperdal] 3 mg PO DAILY 08/03/19 Triamcinolone 0.1% Cream [Aristocort] 1 applic TP BID 08/03/19 Anemia: No Asthma: No Cancer: No Cardiac Disorders: No CVA: No COPD: No CHF: Yes Dementia: No Diabetes: No GI Disorders: No HTN: No Hypercholesterolemia: No Liver Disease: No Psychiatric Problems: Yes Seizures: No Thyroid Disease: No - Immunization History TDAP Vaccination: Yes (03/06/2014) Immunization Up to Date: Yes - Psycho Social/Smoking Cessation Hx Smoking Status: No Smoking History: Never smoked Have you smoked in the past 12 months: No Number of Cigarettes Smoked Daily: 0 Hx Alcohol Use: No Drug/Substance Use Hx: No Substance Use Type: None Hx Substance Use Treatment: No Review of Systems - Review of Systems Able to Perform ROS?: No (2/2 medical condition) *Physical Exam - Physical Exam GENERAL: Awake, alert, in no acute distress HEAD: No signs of trauma, normoc ephalic, atraumatic EYES: PERRLA, EOMI, sclera anicteric, conjunctiva clear ENT: Hearing grossly normal, nares patent, oropharynx clear without exudates. Moist mucosa LUNGS: No distress, speaks in full sentences, clear to auscultation bilaterally HEART: Regular rate and rhythm, normal S1 and S2, no murmurs appreciated, peripheral pulses normal and equal bilaterally ABDOMEN: Soft, nontender, normoactive bowel sounds. No guarding, no rebound. No masses EXTREMITIES: Normal inspection, Normal range of motion, no edema. No clubbing or cyanosis NEUROLOGICAL: Cranial nerves II through XII grossly intact SKIN: Left elbow laceration on extensor surface, approximately 2cm in length w/ o active hemorrhage or surrounding erythema 08/05/19 14:07 Medical Decision Making - Medical Decision Making The pt is a 58M with PMH of presenting to ED with care staff for open wound on the L elbow. ED Course Splint replaced Plan for D/C w/ PCP f/u Discharge instructions and return precautions given Patient in agreement and verbalized understanding Dispo: Home 08/05/19 14:45 Discharge - Discharge Information Problems reviewed: Yes Clinical Impression/Diagnosis: Visit for wound check Condition: Good Disposition: HOME - Admission No - Follow up/Referral Referrals: Christos Danielson [Primary Care Provider] - - Patient Discharge Instructions Additional Instructions: He has an open wound on the elbow due to the sutures being taken out sooner than recommended. He was seen by orthopedics. They recommended a splint to keep him from bending the elbow and follow up in 1 week. If the splint comes off. Keep the two splint pieces. Place two pieces of gauze over the wound. Place one arm board one the back of the arm and one on the front. Then wrap them to the arm using the IMAN wrap to keep the arm straight. Please keep the splint clean and dry. He can take sponge baths. Please make a follow up for wound check at the orthopedic office which is located here in the [facility] on 08/07/2019. The number is . Information is provided below. Come back to the emergency room if his arm looks swollen, he is unable to move his fingers, he develops fever or if any new or concerning symptom develops. - Post Discharge Activity
[2019-08-05 14:21] VITALS: BP 125/70; PULSE 88; TEMP 97.9; BMI 25.6
--- NOTE | 2019-08-05 14:43 | PDOC ---
Attending Attestation - Resident Resident Name: Augusto Ramirez - ED Attending Attestation I have performed the following: I have examined & evaluated the patient, The case was reviewed & discussed with the resident, I agree w/resident's findings & plan, Exceptions are as noted - HPI HPI: 08/05/19 14:42 58yo male with hx of MR from his halfway for eval of L elbow wound. Pt seen 2 days ago and has an elbow lac that was too many hours out for suturing and splinted with arm straight to allow for secondary intention healing. Pt removed the splint. Pt with elbow lac, no drainage, no surrounding erythema, no purulence, no redness. Pt opens the wound everytime he bends his arm. No f/c. No systemic complaints. - Physicial Exam PE: 08/05/19 14:44 Gen: awake, at baseline MS heart: +s1s2 reg lungs: cta b/l abd; soft, nt/nd +bs ext: L elbow lac about 3cm in length - no drainage, no surrounding erythema, no warmth, no ttp, no bleeding, opens when he bends his elbow, pulses intact - Medical Decision Making 08/05/19 14:45 a/p: 58yo male with L elbow lac -needs to be seen in orthopedic clinic -local wound care provided and resplinted with arm straight -no signs of infection -stable for dc home, gave instructions for wound care at the facility to be able to replace the splint if the patient removes it again -needs to see orthopedics
== END 2019-08-05 14:57 | disposition home or self-care (01) ==
LOC: FER 13:30
DX: Z48.01 Encounter for change or removal of surgical wound dressing (principal)
CPT/HCPCS: 99282-25

== ENCOUNTER 2019-08-06 15:48 | Emergency (ER) | payer OTHER ==
[2019-08-06 17:47] VITALS: BP 118/68; BMI 25.6
== END 2019-08-06 17:48 | disposition home or self-care (01) ==
LOC: FER 15:48
DX: Z48.01 Encounter for change or removal of surgical wound dressing (principal)
CPT/HCPCS: 99281-25